=== PATIENT | male | born 1965 | race Caucasian/White ===

== ENCOUNTER 2020-05-14 13:55 | Inpatient (IN) | payer MEDICAID, SELFPAY ==
[~2020-05-14] VITALS: Ht 185.4 cm; Wt 90.7 kg
--- NOTE | 2020-05-14 13:55 | NUR ---
Patient BIBA BLS, transferred to bed 9. RN evaluating patient at bedside.
[2020-05-14 13:56] VITALS: BP 143/97
--- NOTE | 2020-05-14 13:57 | NUR ---
54 y/o male BIBA for SOB, non-productive dry cough, mild nausea X2 weeks. On arrival placed pt on 3L NC, O2 sat at 95%, HR at 132. Pt has increased work of breathing on arrival, retractions noted, lungs are clear at apices and diminished bilateral lower lobes. Equal rise and fall of the chest. Will continue to monitor. Denies PMH, RX NKA
--- NOTE | 2020-05-14 14:00 | NUR ---
18g IV placed to left ac, blood and blood cultures drawn at this time.
--- NOTE | 2020-05-14 14:02 | NUR ---
Dr. Hall is evaluating the patient at bedside.
[2020-05-14] MEDS ORDERED: NACL 0.9% 2,000 ML IV ONE (14:05)
[2020-05-14] MEDS ORDERED: cefTRIAXone 1,000 MG in DEXT 5% MINI-BAG PLUS 50 ML IV ONE (14:05)
[2020-05-14] MEDS ORDERED: cefTRIAXone 1,000 MG VIAL ONE (14:14)
[2020-05-14] MEDS ORDERED: KETOROLAC 30 MG/ML VIAL IVP ONE (14:25)
[2020-05-14 14:34] LABS: BASOPHILS # (AUTO) 0.2 K/uL (0.00-0.22); BASOPHILS % (AUTO) 2.2 % (0.0-2.0); EOSINOPHILS # (AUTO) 0.1 K/uL (0-0.4); EOSINOPHILS % (AUTO) 0.8 % (0.0-4.0); HEMATOCRIT 46.3 % (36-52); HEMOGLOBIN 15.1 g/dL (12.0-18.0); LYMPHOCYTES # (AUTO) 2.2 K/uL (2.0-11.5); LYMPHOCYTES % (AUTO) 27.7 % (20.5-51.1); MEAN CORPUSCULAR HEMOGLOBIN 28 pg (27-31); MEAN CORPUSCULAR HGB CONC 33 g/dL (33-37); MEAN CORPUSCULAR VOLUME 87.3 fL (80-94); MONOCYTES # (AUTO) 0.9 K/uL (0.8-1.0); MONOCYTES % (AUTO) 11.5 % (1.7-9.3); NEUTROPHILS # (AUTO) 4.5 K/uL (1.8-7.7); NEUTROPHILS % (AUTO) 57.8 % (42.2-75.2); PLATELET COUNT (AUTO) 197 K/uL (140-450); RED BLOOD CELL COUNT(AUTO) 5.31 MIL/uL (4.20-6.10); RED CELL DISTRIBUTION WIDTH 16.1 % (11.6-13.7); WHITE BLOOD COUNT (AUTO) 7.8 K/uL (4.8-10.8)
[2020-05-14 14:47] LABS: ANION GAP 11.9 (8-16); CARBON DIOXIDE 28.5 mmol/L (21-32); POTASSIUM 4.4 mmol/L (3.5-5.1); TOTAL BILIRUBIN 1.2 mg/dL (0.0-1.0)
--- NOTE | 2020-05-14 15:07 | NUR ---
XR at the pt bedside.
--- NOTE | 2020-05-14 15:22 | NUR ---
Consent in pt chart for CT contrast procedure per ERMD order.
--- NOTE | 2020-05-14 15:55 | NUR ---
Pt transported to CT via rney.
[2020-05-14 15:57] LABS: APPEARANCE,URINE CLEAR (CLEAR); BILIRUBIN,URINE 1+ (NEGATIVE); BLOOD, URINE NEGATIVE (NEGATIVE); LEUKOCYTE ESTERASE ,URINE NEGATIVE (NEGATIVE); NITRITE, URINE NEGATIVE (NEGATIVE); PH,URINE 5.5 (5.0-9.0); UGLUCOSE NEGATIVE (NEGATIVE)
--- NOTE | 2020-05-14 16:12 | NUR ---
Patient returned from CT scan.
[2020-05-14 16:16] LABS: COLOR,URINE AMBER (YELLOW)
[2020-05-14] MEDS ORDERED: ENOXAPARIN 100 MG/ML SYR SUBQ ONE (16:55)
--- NOTE | 2020-05-14 17:08 | NUR ---
Pt has increased work of breathing noted with sinus tachycardia, and elevated respirations. Pt is on 3L NC with o2 sat at 97%. See charted VSS for trend. Will continue to monitor. Pending admission.
[2020-05-14 17:34] LABS: PROTHROMBIN TIME 12.5 secs (10.8-13.4)
--- NOTE | 2020-05-14 18:48 | NUR ---
Pt resting, eyes closed. Will continue to monitor. Pending admission.
--- NOTE | 2020-05-14 19:16 | NUR ---
Gave report to EMMANUEL Romero, transfered patient care at this time.
--- NOTE | 2020-05-14 19:36 | NUR ---
Called EMMANUEL Blum over the phone for transfer of care report.
--- NOTE | 2020-05-14 20:00 | NUR ---
ADMITTED 54 Y/O MALE, TRANSPORTED VIA GURNEY FROM [facility], AOX4, NO DISTRESS, ON 5L NC NO SOB, O2 SAT WNL, LAC 18 G, INTACT, MRSA SWAB TAKEN, V/S TAKEN, TELE MONITOR ATTACHED, SAFETY MEASURES IN PLACE, LOW BED IN PLACE, ORIENTED TO ROOM, CALL LIGHT WITHIN REACH.
--- NOTE | 2020-05-14 20:00 | NUR ---
Patient will be admitted to care of DR.MICHAEL LYLE. Admited to TELEMETRY. Will go to room 111B. Belongings list completed. Report to EMMANUEL HOLBROOK.
--- NOTE | 2020-05-14 22:00 | NUR ---
PT IS WATCHING TV. NO SOB ON O2 VIA NC AT 5 LPM.
[2020-05-14] MEDS ORDERED: HYDROcodone/APAP 7.5/325 MG 1 TAB PO PRN (22:20)
[2020-05-14] MEDS ORDERED: POTASSIUM CHLORIDE 10 MEQ TABER PO PRN (22:20)
[2020-05-14] MEDS ORDERED: ACETAMINOPHEN 325 MG TAB PO PRN (22:20)
[2020-05-14] MEDS ORDERED: DOCUSATE SODIUM 100 MG GELCAP PO PRN (22:20)
[2020-05-14 23:14] LABS: CHOL/HDL RATIO 1.6 (1-4.5); FREE T4 (FREE THYROXINE) 1.09 ng/dL (0.76-1.46); MAGNESIUM 1.6 mg/dL (1.8-2.4); PHOSPHORUS 4.3 mg/dL (2.5-4.9); THYROID STIMULATING HORMONE 2.57 uIU/mL (0.34-3.74)
[2020-05-14] MEDS ORDERED: PNEUMOCOCCAL VACCINE 23 MCG/0.5 ML VIAL IMVAC SCH (23:40)
[2020-05-14 23:47] LABS: BARBITURATE, URINE NEGATIVE ng/ml (NEG <=200)
[2020-05-14 23:48] LABS: BENZODIAZEPINE, URINE NEGATIVE ng/mL (NEG <=200); CANNABINOID, URINE NEGATIVE ng/mL (NEG <=50); COCAINE, URINE NEGATIVE ng/mL (NEG <=300); OPIATE, URINE NEGATIVE ng/mL (NEG <=2000); PHENCYCLIDINE SCREEN,URINE NEGATIVE ng/mL (NEG <=25)
--- NOTE | 2020-05-15 | NUR ---
V/S TAKEN AND RECORDED. AROUSABLE TO VERBAL.
--- NOTE | 2020-05-15 02:00 | NUR ---
PT IS ASLEEP.NOTED CHEST RISE.
--- NOTE | 2020-05-15 04:00 | NUR ---
V/S TAKEN, PT IS SLEEPING, KEPT WARM.
--- NOTE | 2020-05-15 07:10 | NUR ---
PT IS STABLE, BEDSIDE ENDORSEMENT GIVEN TO AM SHIFT RN FOR CONTINUITY OF CARE.
--- NOTE | 2020-05-15 08:47 | NUR ---
PATIENT HAS BEEN SCREENED AND CATEGORIZED MODERATE NUTRITION RISK. PATIENT WILL BE SEEN WITHIN 3-5 DAYS OF ADMISSION. 05/17/20 05/19/[address]
[2020-05-15] MEDS ORDERED: LOVENOX 1MG/KG Q12H SUBQ SCH (09:00)
[2020-05-15] MEDS: ENOXAPARIN 100 MG/ML SYR SUBQ SCH ×2 (09:21→20:14)
--- NOTE | 2020-05-15 10:25 | NUR ---
DC PLANN[age] YRS OLD ADMITTED FROM HOME WITH A DX PULMONARY EMBOLISM. PT HAS NO MEDICAL HISTORY. CXR SHOWED PULMONARY INTERSTITIAL AND LIKELY ALVEOLAR EDEMA . PT WAS WITH ELEVATED D-DIMER AND CT CHEST SHOWED PE. TREATED WITH LOVENOX 90 MG SUBQ , IVF, IV ABX WITH ROCEPHIN . RAPID COVID TEST NEGATIVE INFLUENZA A&B NEGATIVE. URINE AND BLOOD CULTURE PENDING. CONSULTED WITH CUSHION MAT MAKER . DC PLAN PER RESPONSE TO THE TREATMENT. CM TO FOLLOW. Addendum: 05/17/20 at 1039 by aKterina Valenzuela RN DC PLANNING: CALLED [facility] [phone] LEFT A MESSAGE FOR JOSE RAMON GUERRERO . PT IS CURRENTLY ON O2 8L OXYMIZER CM TO FOLLOW Addendum: 05/17/20 at 1201 by Katerina Valenzuela RN DC PLANNING: RECEIVED A CALL FROM [employer] CM SPOKE WITH BILL [phone] UPDATED PT'S CLINICAL AND DISCUSS THE DC PLAN, AT THIS TIME PT'S HEART RATE ARE IN THE 130'S AND CAN NOT GO TO SNF. PT MD ORDERED ONCE STABLE CAN GO TO SNF FOR O2 MANAGEMENT AND PT. PER BILL [facility] STAY AT [facility] UNTIL STABLE , AT THIS TIME THERE IS NO BED AVAILABLE TO ANY OF CONTRACTED FACILITY AND WILL AUTHORIZED THE STAY. SHE PROVIDE ME THE CONTRACTED FACILITY FOR SNF. FAXED TO THE [facility] [phone]. CM TO FOLLOW Addendum: 05/17/20 at 1510 by Katerina Valenzuela RN DC PLANNING: RECEIVED A CALL FROM [facility] [phone] SPOKE WITH [facility] , CAN ACCEPT PATIENT WITH 8L OXYMIZER BUT THEY ARE NOT CONTRACTED WITH [facility] AND [facility] HAS TO GIVE CHANTE. CALLED BILL AT [facility] MALCOM STATED SHE CAN NOT GIVE CHANTE WILL TRY THE CONTRACTED FACILITY FIRST. AND BILL STATED PT CAN STAY AT THE HOSPITAL UNTIL HE GETS BETTER AND STABLE TO TRANSFER TO SNF. AUTH # [id number]. CM TO FOLLOW Addendum: 05/19/20 at 1438 by Abdirahman Escalante SS BEA CONSULTED WITH DR. CARBALLO REGARDING DISCHARGE PLAN. PER DR. CARBALLO, PATIENT IS ABLE TO BE DISCHARGED HOME IF PRESCRIBED MEDICATION IS COVERED BY INSURANCE. BEA CONTACTED EMMANUEL CASTELLANO WHO SPOKE WITH PATIENT REGARDING PREFERRED PHARMACY. PER PATIENT, [facility] [address] [place] [phone] . [facility] WHO STATED THAT THEY WOULD NOT BE ABLE TO SEE IF MEDICATION WOULD BE COVERED UNLESS ELECTRONIC PRESCRIPTION WAS FILLED OUT. BEA INFORMED EMMANUEL CASTELLANO WHO STATED SHE WOULD INFORM DR. CARBALLO. Addendum: 05/19/20 at 1504 by Abdirahman AGUILAR BEA SPOKE WITH DR. CARBALLO REGARDING PRESCRIPTION. DR CARBALLO STATED THAT HE WOULD SEND ELECTRONIC PRESCRIPTION TO SEE IF INSURANCE COVERS IT. BEA CON[facility]ED [facility] AND SPOKE TO ROBIN. PER ROBIN, ALL MEDICATIONS WERE COVERED BY PATIENT'S INSURANCE. ROBIN STATED THAT HE LEFT PRESCRIPTION FOR [facility] OPEN TO BE PICKED UP. PER DR. CARBALLO, PATIENT WILL BE STAYING EXTRA NIGHT.
[2020-05-15 13:00] VITALS: BP 135/94
--- NOTE | 2020-05-15 15:08 | NUR ---
SOCIAL WORK NOTE: Patient's Orientation Person Situation Place Time Information Provided By PATIENT Comments SW MET WITH PATIENT AT BEDSIDE. PATIENT WAS GUARDED AND SARCASTIC WITH RESPONSES. SW ATTEMPTED TO COMPLETE ASSESSMENT WITH PATIENT. PATIENT WAS UNCOOPERATIVE WITH ASSESSMENT. Cylindrical Mixer, Realtionship and Phone Number ALTA KRUEGER [phone] [facility] Power of Director Of It Operations No Does Patient Have a POLST No Identifying Problems Homelessness/Housing Is A Social Work Consult Needed No Mandate Report Filed No Explanation Of Identifying Problems PATIENT IS A 54-YEAR-OLD MALE ADMITTED FOR PULMONARY EMBOLISM. PATIENT HAS PMHX OF POLYSUBSTANCE ABUSE. DURING ASSESSMENT, PATIENT DENIED SUBSTANCE ABUSE AND REFUSED SUBSTANCE ABUSE RESOURCES. SW LEFT HOMELESS RESOURCES AT BEDSIDE. PATIENT DENIED MENTAL HEALTH HISTORY. PATIENT'S RESPONSES THEREAFTER WERE LIMITED. Admitted From HOMELESS Pre-Admission Level Of Functioning Status Independent/Ambulatory Prior Resources/Services Used In Last 12 Months Homeless Resources Living Situation Homeless Factors/Needs Retirement/Homeless Discharge Plan Comments TENTATIVE DISCHARGE PLAN IS FOR PATIENT TO COORDINATE LIVING ARRANGEMENTS HIMSELF. PATIENT REFUSED RESOURCES. DC Plan Status Initiated
[2020-05-15] MEDS: LORazepam 2 MG/ML VIAL IM/IVP PRN ×2 (15:48→20:37)
--- NOTE | 2020-05-15 19:38 | NUR ---
RECEIVED REPORT AND CONTINUITY OF CARE FROM AM NURSE.
[2020-05-15] MEDS ORDERED: DILTIAZEM 25 MG/5 ML VIAL IVP SCH (21:15)
--- NOTE | 2020-05-15 21:15 | NUR ---
WALL COVERING CONTRACTOR REPORTED THAT PT SHOWED ATRIAL FLUTTER WITH P134 ON TELE STRIP. BP IS 130/90, RR 26. MD CARBALLO NOTIFIED. ORDER RECEIVED TO ADMINISTERED 20MG CARDIZEM ONCE.
[2020-05-15] MEDS ORDERED: DILTIAZEM 25 MG/5 ML VIAL IVP ONE (21:20)
--- NOTE | 2020-05-15 21:30 | NUR ---
UPON PHYSICAL ASSESSMENT, PT IS A/OX4, HEAD IS ROUND, NORMOCEPHALIC, FACE IS UNIFORMED, SYMMETRICAL, ALIGNED EYEBROWS AND SMILE, PMMM, SCLERA WHITE, PERRL. TRACHEA IS PLACE IN THE MIDLINE OF THE NECK, MILD JVD NOTED CHEST IS SYMMETRICAL, DIMINISHED LUNG TONES, BREATHING SPONTANEOUSLY ON 3L 02 VIA NC. S1, S2 HEART TONES NOTED. PITTING EDEMA +2 IN BUE, +3 IN BLE. BOWEL TONES ARE ACTIVE IN FOUR QUADRANTS. ABD IS FLAT AND NONTENDER. SKIN IS SMOOTH, WARM, DRY, AND INTACT. NAILS INTACT, CAP REFILL IS LESS THAN 3 SECONDS, NO CLUBBING OR CYANOSIS NOTED. EQUAL AND BILATERAL PEDAL PULSES NOTED. ORIENTED PT TO STAFF AND CALL LIGHT. SAFETY PRECAUTIONS IN PLACE.
--- NOTE | 2020-05-15 21:38 | NUR ---
ADMINISTERED CARDIZEM PER MD ORDER. WILL REASSESS IN 15 MINS.
--- NOTE | 2020-05-15 23:18 | NUR ---
DR ASENCIO INFORMED OF PT'S PULSE AT 134. ORDER RECEIVED TO ADMINISTER METOPROLOL 5MG IVP Q3H FOR HR >120 AND METOPROLOL 50MG PO BID. ONE DOSE OF EACH ORDER IS TO BE ADMINISTERED NOW.
--- NOTE | 2020-05-15 23:55 | NUR ---
ADMINISTERED LOPRESSOR PER MD ORDER. EDUCATION RENDERED. PT VERBALIZED UNDERSTANDING. NO SIGNS OF DISTRESS AT THIS TIME. Addendum: 05/16/20 at 0356 by Rouqe Rios RN NURSE WAS NOT ABLE TO SCAN LOPRESSOR 50MG PO IN [employer] BUT THE MEDICATION WAS GIVEN.
[2020-05-15] MEDS ORDERED: METOPROLOL 50 MG TAB ONE (23:57)
--- NOTE | 2020-05-16 00:10 | NUR ---
PT FOUND TO BE LYING DOWN FLAT ON THE EDGE OF HIS BED COMPLAINING OF NOT BEING ABLE TO BREATHE. HELP PT TO SIT UP AND EDUCATED THE PT TO TAKE DEEP BREATHES. MOVED THE PT BACK INTO BED AND EDUCATION THE PT TO ELEVATE HOB AT LEAST 45 DEGREES TO HELP HIM BREATHE BETTER. 3L 02 VIA NC ATTACHED. TELE MONITOR ATTACHED. WILL CONTINUE TO MONITOR.
--- NOTE | 2020-05-16 01:54 | NUR ---
patient checked and placed on 3lnc due to desaturation. no respiratory distress noted. rn aware. will cont to monitor
--- NOTE | 2020-05-16 02:50 | NUR ---
PT IS SLEEPING. NO SIGNS OF DISTRESS AT THIS TIME.
--- NOTE | 2020-05-16 04:12 | NUR ---
ADMINISTERED LOPRESSOR 5MMG/5ML FOR HEART RATE 126, BP 129/80. WILL REASSESSED IN 1 HOUR. Addendum: 05/16/20 at 0442 by Roque Rios RN CORRECTION ADMINISTERED LOPRESSOR 5MG/5ML.
[2020-05-16] MEDS: METOPROLOL 5 MG/5 ML VIAL IV PRN ×2 (04:20)
[2020-05-16] MEDS ORDERED: FUROSEMIDE 40 MG/4 ML VIAL IVP SCH (06:35)
--- NOTE | 2020-05-16 07:30 | NUR ---
RECEIVED REPORT FROM PM RN. POC WILL CONTINUE. PT DEMONSTRATES SOB. NO CYANOSIS NOTED. KEPT HOB ELEVATED. PLACED PT TO FALL PRECAUTION.
[2020-05-16 07:36] LABS: HEMATOCRIT 48.2 % (36-52); HEMOGLOBIN 15.8 g/dL (12.0-18.0); MEAN CORPUSCULAR HEMOGLOBIN 29 pg (27-31); MEAN CORPUSCULAR HGB CONC 33 g/dL (33-37); PLATELET COUNT (AUTO) 200 K/uL (140-450); RED BLOOD CELL COUNT(AUTO) 5.46 MIL/uL (4.20-6.10); RED CELL DISTRIBUTION WIDTH 16.1 % (11.6-13.7); WHITE BLOOD COUNT (AUTO) 7.5 K/uL (4.8-10.8)
[2020-05-16 07:37] LABS: BASOPHILS # (AUTO) 0.1 K/uL (0.00-0.22); BASOPHILS % (AUTO) 0.7 % (0.0-2.0); EOSINOPHILS % (AUTO) 0.2 % (0.0-4.0); LYMPHOCYTES # (AUTO) 1.4 K/uL (2.0-11.5); LYMPHOCYTES % (AUTO) 19.2 % (20.5-51.1); MONOCYTES # (AUTO) 0.4 K/uL (0.8-1.0); NEUTROPHILS # (AUTO) 5.5 K/uL (1.8-7.7); NEUTROPHILS % (AUTO) 73.9 % (42.2-75.2)
--- NOTE | 2020-05-16 07:50 | NUR ---
ADMINISTERED LASIX 40GM IV PUSH. EDUCATION RENDERED. ENDORSE REPORT AND CONTINUITY OF CARE TO AM NURSE.
[2020-05-16 08:08] LABS: T4 (THYROXINE) 5.8 ug/dL (4.5-12.0)
[2020-05-16 08:28] LABS: ANION GAP 14.6 (8-16); CARBON DIOXIDE 25.4 mmol/L (21-32)
[2020-05-16 08:30] VITALS: BP 126/114
[2020-05-16 08:33] LABS: MAGNESIUM 1.8 mg/dL (1.8-2.4)
[2020-05-16] MEDS: AZITHROMYCIN 250 MG TAB PO SCH (08:52)
[2020-05-16] MEDS: METOPROLOL 50 MG TAB PO SCH ×2 (08:52→21:06)
[2020-05-16] MEDS: ENOXAPARIN 100 MG/ML SYR SUBQ SCH ×2 (08:54→21:07)
--- NOTE | 2020-05-16 12:00 | NUR ---
PT IS RESTING AND CALM. NO S/S OF SOB. NO CYANOSIS NOTED. REINFORCED ON FALL PRECAUTION. WILL CONTINUE TO MONITOR.
[2020-05-16 12:15] VITALS: BP 130/94
--- NOTE | 2020-05-16 12:15 | NUR ---
PT VERBALIZED DIFFICULTY BREATHING. V/S TAKEN. O2 SAT AT 98%. NO SIGNS OF CYANOSIS NOTED. PT IS AGITATED. WILL MEDICATE NEEDED.
[2020-05-16] MEDS: LORazepam 2 MG/ML VIAL IM/IVP PRN ×2 (12:17→21:16)
--- NOTE | 2020-05-16 12:50 | NUR ---
O2 SAT 83 - 86%. RT JOANNA NOTIFIED ON THE FLOOR. SEEN AND ATTENDED. PT ON 3L O2. RT PLACED PT TO OXYMIZER 8 L . WILL CONTINUE TO MONITOR.
--- NOTE | 2020-05-16 13:06 | NUR ---
94% O2 SAT. PT ON 8L VIA OXYMIZER. PT IS RESTING AND CALM AT THIS TIME.
--- NOTE | 2020-05-16 19:15 | NUR ---
ENDORSED TO PM RN FOR THE CONTINUITY OF CARE. NO CHANGE NOTED.
--- NOTE | 2020-05-16 19:16 | NUR ---
RECEIVED BEDSIDE REPORT FROM DAY RN. PT IS RESTING COMFORTABLY IN BED. CHEST RISE AND FALL NOTED. PT ON OXIMIZER 8L O2. RESPIRATIONS ARE EQUAL AND LABORED WITH RR 22. IV ON LAC 22G SL DX PE. PT ON STANDARD ISOLATION. PT IS ON FALL PRECAUTION. PT IS A-FLUTER WITH HR 130s MD AWARE. CALL LIGHT IS WITHIN REACH. WILL CONTINUE TO MONITOR.
[2020-05-16 20:00] VITALS: BP 120/93
--- NOTE | 2020-05-16 21:06 | NUR ---
VSS. PT IS AAOX4. STATES, "MY OXYGEN IS NOT WORKING." PT IS SAT 93% ON 8L O2 VIA OXIMIZER. EXPLAIN POC TO PT. PT VERBALIZED UNDERSTANDING. EV MEDICATION GIVEN PER ORDERS. MED EDUCATION GIVEN. PT VERBALIZED UNDERSTANDING. PT WITH BLE EDEMA NON PITTING. LUNG SOUNDS WITH GRISELDA WHEEZING AND RHONCHI. ALL NEEDS MET. CALL LIGHT IS WITHIN REACH.
[2020-05-17] VITALS: BP 126/98
--- NOTE | 2020-05-17 | NUR ---
VITAL SIGNS ARE STABLE. PT REMAINS ON 8L O2 VIA OXIMIZER. PT SLEEPING COMFORTABLY IN BED BUT EASILY AROUSABLE TO NAME. CALL LIGHT IS WITHIN REACH. WILL CONTINUE TO MONITOR.
--- NOTE | 2020-05-17 02:00 | NUR ---
PT SLEEPING COMFORTABLY IN BED WITH EYES CLOSED. CHEST RISE AND FALL NOTED. REMAINS ON OXIMIZER 8L SAT WELL. CALL LIGHT IS WITHIN REACH. WILL CONTINUE TO MONITOR.
[2020-05-17 04:00] VITALS: BP 106/84
--- NOTE | 2020-05-17 04:00 | NUR ---
VITAL SIGNS ARE STABLE. PT RESTING COMFORTABLY IN BED. DENIES ANY PAIN OR DISCOMFORT. ALL NEEDS MET. CALL LIGHT IS WITHIN REACH.
--- NOTE | 2020-05-17 07:23 | NUR ---
GAVE BEDSIDE REPORT TO DAY RN. PT ENDORSED IN STABLE CONDITION.
--- NOTE | 2020-05-17 07:28 | NUR ---
RECEIVED BEDSIDE REPORT FROM NIGHTSHIFT NURSE. PT RESTING IN BED. ABLE TO MAKE NEEDS KNOWN. RESPIRATIONS EVEN AND UNLABORED WITH NO SOB OR RESPIRATORY DISTRESS. SKIN WARM AND DRY TO TOUCH. IV SITE IN LAC 18G IS CLEAN, DRY, AND INTACT. WILL CONTINUE TO MONITOR
[2020-05-17 08:00] VITALS: BP 131/94
[2020-05-17] MEDS: METOPROLOL 50 MG TAB PO SCH ×2 (09:39→21:07)
[2020-05-17] MEDS: AZITHROMYCIN 250 MG TAB PO SCH (09:39)
[2020-05-17] MEDS: ENOXAPARIN 100 MG/ML SYR SUBQ SCH ×2 (09:39→21:16)
--- NOTE | 2020-05-17 09:52 | NUR ---
ADMINISTERED SCHED MED PRESCRIBED PER MD ORDER. PT TOLERATED WELL. MEDICATION EDUCATION PERFORMED. PT VERBALIZED UNDERSTANDING. SAFETY MEASURES IN PLACE. WILL CONTINUE TO MONITOR
[2020-05-17 12:00] VITALS: BP 139/91
--- NOTE | 2020-05-17 12:00 | NUR ---
PT RESTING IN BED. ABLE TO MAKE NEEDS KNOWN. RESPIRATIONS EVEN AND UNLABORED WITH NO SOB OR RESPIRATORY DISTRESS. SKIN WARM AND DRY TO TOUCH. WILL CONTINUE TO MONITOR
--- NOTE | 2020-05-17 15:06 | NUR ---
ADMINISTERED SCHED MED PRESCRIBED PER MD ORDER. PT TOLERATED WELL. MEDICATION EDUCATION PERFORMED. PT VERBALIZED UNDERSTANDING. SAFETY MEASURES IN PLACE. WILL CONTINUE TO MONITOR
[2020-05-17 16:00] VITALS: BP 116/82
--- NOTE | 2020-05-17 16:48 | NUR ---
P.T. NOTES P.T. EVAL COMPLETED; ENDORSED TO NURSING; O2 SAT ROOM AIR=97%
--- NOTE | 2020-05-17 18:45 | NUR ---
HOURLY ROUNDING. PT RESTING IN BED. ABLE TO MAKE NEEDS KNOWN. RESPIRATIONS EVEN AND UNLABORED WITH NO SOB OR RESPIRATORY DISTRESS. SKIN WARM AND DRY TO TOUCH. WILL CONTINUE TO MONITOR
--- NOTE | 2020-05-17 19:20 | NUR ---
ENDORSED AT BEDSIDE FOR CONTINUITY OF CARE. PT IS STABLE
--- NOTE | 2020-05-17 19:24 | NUR ---
RECEIVED BEDSIDE REPORT FROM DAY RN. PT IS RESTING COMFORTABLY IN BED EATING DINNER NO COMPLAINTS AT THIS TIME. RESPIRATIONS ARE EQUAL AND UNLABORED ON ROOM AIR. IV ON LAC 18G SL DX PE. SKIN IS INTACT. PT ON STANDARD ISOLATION. PT IS ON FALL PRECAUTION. PT IS A-FLUTER WITH HR 130s MD AWARE. POC DISCUSSED WITH PT. PT VERBALIZED UNDERSTANDING. CALL LIGHT IS WITHIN REACH. WILL CONTINUE TO MONITOR.
--- NOTE | 2020-05-17 21:07 | NUR ---
VITAL SIGNS ARE STABLE. EV MEDICATIONS GIVEN PER ORDERS. MED EDUCATION GIVEN. PT TOLERATED WELL. ALL NEEDS MET. CALL LIGHT IS WITHIN REACH.
[2020-05-17] MEDS: LORazepam 2 MG/ML VIAL IM/IVP PRN (21:16)
[2020-05-17 22:04] VITALS: BP 107/82
--- NOTE | 2020-05-17 22:30 | NUR ---
ROUNDS MADE. PT IS SLEEPING COMFORTABLY IN BED WITH EYES CLOSED. CHEST RISE AND FALL. CALL LIGHT IS WITHIN REACH.
[2020-05-18] VITALS: BP 113/80
--- NOTE | 2020-05-18 | NUR ---
VITAL SIGNS ARE STABLE. PT LAYING IN BED GOING THROUGH ALL BELONGINGS. PT REMAINS AAOX4. DENIES ANY DISCOMFORT. ALL NEEDS MET. WILL CONTINUE TO MONITOR.
--- NOTE | 2020-05-18 02:10 | NUR ---
ROUNDS MADE. PT IS SLEEPING COMFORTABLY IN BED WITH EYES CLOSED. CHEST RISE AND FALL NOTED. CALL LIGHT IS WITHIN REACH.
[2020-05-18 04:00] VITALS: BP 123/95
--- NOTE | 2020-05-18 04:00 | NUR ---
VITAL SIGNS ARE WITHIN NORMAL LIMITS. CALL LIGHT IS WITHIN REACH.
--- NOTE | 2020-05-18 07:20 | NUR ---
RECEIVED REPORT FROM PM RN. PT DEMONSTRATES NO S/S OF DISTRESS. NO SOB NOTED. DENIES CHEST PAIN. FALL PRECAUTION INITIATED. INSTRUCTED TO USE CALL LIGHT. PT DEMONSTRATED UNDERSTANDING. WILL CONTINUE TO MONITOR.
--- NOTE | 2020-05-18 07:30 | NUR ---
GAVE BEDSIDE REPORT TO DAY RN. PT ENDORSED IN STABLE CONDITION.
[2020-05-18 08:00] VITALS: BP 105/63
[2020-05-18 09:19] LABS: ANION GAP 11.3 (8-16); CARBON DIOXIDE 27.6 mmol/L (21-32); CREATININE 1.1 mg/dL (0.6-1.3); POTASSIUM 4.9 mmol/L (3.5-5.1)
[2020-05-18 09:22] LABS: MAGNESIUM 1.8 mg/dL (1.8-2.4); PHOSPHORUS 3.7 mg/dL (2.5-4.9)
[2020-05-18 09:25] LABS: BASOPHILS # (AUTO) 0.1 K/uL (0.00-0.22); EOSINOPHILS # (AUTO) 0.1 K/uL (0-0.4); HEMATOCRIT 46.8 % (36-52); HEMOGLOBIN 15.3 g/dL (12.0-18.0); LYMPHOCYTES # (AUTO) 2.5 K/uL (2.0-11.5); LYMPHOCYTES % (AUTO) 35.6 % (20.5-51.1); MEAN CORPUSCULAR HEMOGLOBIN 29 pg (27-31); MEAN CORPUSCULAR HGB CONC 33 g/dL (33-37); MEAN CORPUSCULAR VOLUME 87.2 fL (80-94); MONOCYTES # (AUTO) 0.6 K/uL (0.8-1.0); MONOCYTES % (AUTO) 8.8 % (1.7-9.3); NEUTROPHILS # (AUTO) 3.7 K/uL (1.8-7.7); NEUTROPHILS % (AUTO) 53.6 % (42.2-75.2); PLATELET COUNT (AUTO) 210 K/uL (140-450); RED BLOOD CELL COUNT(AUTO) 5.36 MIL/uL (4.20-6.10); RED CELL DISTRIBUTION WIDTH 15.8 % (11.6-13.7); WHITE BLOOD COUNT (AUTO) 6.9 K/uL (4.8-10.8)
[2020-05-18] MEDS: AZITHROMYCIN 250 MG TAB PO SCH (09:49)
[2020-05-18] MEDS: ENOXAPARIN 100 MG/ML SYR SUBQ SCH ×2 (09:49→20:37)
[2020-05-18] MEDS: METOPROLOL 50 MG TAB PO SCH ×2 (09:50→20:36)
[2020-05-18] MEDS ORDERED: lisinopriL 10 MG TAB PO SCH (10:15)
[2020-05-18] MEDS ORDERED: FUROSEMIDE 20 MG/2 ML VIAL IVP SCH (10:15)
[2020-05-18 12:00] VITALS: BP 106/87
--- NOTE | 2020-05-18 12:00 | NUR ---
PT IS CALM. NO SOB NOTED. KEPT PT ON RA. NO S/S OF AGITATION. WILL CONTINUE TO MONITOR.
--- NOTE | 2020-05-18 14:07 | NUR ---
05/18/2020 RD INITIAL ASSESSMENT COMPLETED PLEASE REFER TO NUTRITION ASSESSMENT UNDER CARE ACTIVITY FOR ESTIMATED NUTRITIONAL NEEDS. RD RECOMMENDATIONS: 1. CONTINUE REGULAR DIET TOLERATED. 2. HEALTHY EATING EDUCATION AND HANDOUT PROVIDED TO PT. 3. RD WILL F/U 7 DAYS; LOW RISK. AWILDA BAUER, RD
[2020-05-18 16:00] VITALS: BP 118/79
--- NOTE | 2020-05-18 19:30 | NUR ---
REPORT GIVEN TO PM RN. ENDORSED PT WITH NO S/S OF DISTRESS. NO CHANGE OF CONDITION.
[2020-05-18 20:00] VITALS: BP 114/88
[2020-05-18] MEDS: FUROSEMIDE 20 MG/2 ML VIAL IVP SCH (20:36)
[2020-05-19] VITALS: BP 116/86
[2020-05-19 04:00] VITALS: BP 118/83
[2020-05-19 07:22] LABS: ANION GAP 11.3 (8-16); CARBON DIOXIDE 28.7 mmol/L (21-32); CREATININE 1.1 mg/dL (0.6-1.3)
[2020-05-19 07:32] LABS: BASOPHILS # (AUTO) 0.1 K/uL (0.00-0.22); BASOPHILS % (AUTO) 0.8 % (0.0-2.0); EOSINOPHILS % (AUTO) 0.6 % (0.0-4.0); HEMATOCRIT 45.9 % (36-52); HEMOGLOBIN 15.2 g/dL (12.0-18.0); LYMPHOCYTES # (AUTO) 2.6 K/uL (2.0-11.5); LYMPHOCYTES % (AUTO) 40.7 % (20.5-51.1); MEAN CORPUSCULAR HEMOGLOBIN 29 pg (27-31); MEAN CORPUSCULAR HGB CONC 33 g/dL (33-37); MEAN CORPUSCULAR VOLUME 86.5 fL (80-94); MONOCYTES # (AUTO) 0.6 K/uL (0.8-1.0); MONOCYTES % (AUTO) 9.7 % (1.7-9.3); NEUTROPHILS # (AUTO) 3.1 K/uL (1.8-7.7); NEUTROPHILS % (AUTO) 48.2 % (42.2-75.2); PLATELET COUNT (AUTO) 205 K/uL (140-450); RED CELL DISTRIBUTION WIDTH 15.9 % (11.6-13.7); WHITE BLOOD COUNT (AUTO) 6.4 K/uL (4.8-10.8)
--- NOTE | 2020-05-19 07:42 | NUR ---
Handoff with EMMANUEL Gordon. Antonio Russell RN
--- NOTE | 2020-05-19 07:45 | NUR ---
RECEIVED PT FROM SKIVING MACHINE OPERATOR, PT IS AWAKE AND SEATED ON THE BED, SAFETY AND FALL PRECAUTION IN PLACE, IV LINE NOTED ON THE RT FA G. 24, ON SALINE LOCK, PT IS ON RA, NO SIGN OF DISTRESS NOTED AND WILL MONITOR PT.
[2020-05-19 08:00] VITALS: BP 125/94
[2020-05-19] MEDS: ENOXAPARIN 100 MG/ML SYR SUBQ SCH ×2 (08:32→21:16)
--- NOTE | 2020-05-19 08:32 | NUR ---
PT WAS GIVEN THE SCHEDULED AM MEDICATIONS, TOLERATED AND WILL MONITOR PT.
[2020-05-19] MEDS: AZITHROMYCIN 250 MG TAB PO SCH (08:42)
[2020-05-19] MEDS: METOPROLOL 50 MG TAB PO SCH ×2 (08:42→21:11)
[2020-05-19] MEDS: FUROSEMIDE 20 MG/2 ML VIAL IVP SCH (08:42)
[2020-05-19] MEDS: lisinopriL 10 MG TAB PO SCH (08:43)
[2020-05-19] MEDS: ONDANSETRON 4 MG/2 ML VIAL IM/IVP PRN ×3 (09:00→22:40)
--- NOTE | 2020-05-19 09:00 | NUR ---
PT WAS GIVEN ZOFRAN FOR FEELING OF NAUSEA, WILL MONITOR PT.
[2020-05-19 12:00] VITALS: BP 125/88
--- NOTE | 2020-05-19 12:01 | NUR ---
PT IS HAVING HIS LUNCH NOW, NO SIGN OF DISTRESS NOTED, WILL MONITOR PT.
[2020-05-19] MEDS ORDERED: DABI150C PO (14:44)
[2020-05-19] MEDS ORDERED: APIX5TAB PO (14:44)
--- NOTE | 2020-05-19 15:27 | NUR ---
PT WAS GIVEN IVPB ROCEPHIN NOW, WILL MONITOR PT.
[2020-05-19 16:00] VITALS: BP 117/87
--- NOTE | 2020-05-19 17:32 | NUR ---
PT WAS GIVEN ZOFRAN NOW FOR FEELING OF NAUSEA, WILL MONITOR PT.
--- NOTE | 2020-05-19 19:15 | NUR ---
ENDORSED PT TO MEDICAL RADIATION DOSIMETRIST NURSE FOR CONTINUITY OF CARE.
[2020-05-19 20:00] VITALS: BP 116/86
[2020-05-20] VITALS: BP 96/71
[2020-05-20 04:00] VITALS: BP 96/76
[2020-05-20 07:15] LABS: BASOPHILS # (AUTO) 0.1 K/uL (0.00-0.22); BASOPHILS % (AUTO) 0.9 % (0.0-2.0); EOSINOPHILS # (AUTO) 0.1 K/uL (0-0.4); EOSINOPHILS % (AUTO) 1.1 % (0.0-4.0); HEMATOCRIT 45.2 % (36-52); HEMOGLOBIN 14.9 g/dL (12.0-18.0); LYMPHOCYTES # (AUTO) 2.5 K/uL (2.0-11.5); LYMPHOCYTES % (AUTO) 40.6 % (20.5-51.1); MEAN CORPUSCULAR HEMOGLOBIN 29 pg (27-31); MEAN CORPUSCULAR HGB CONC 33 g/dL (33-37); MEAN CORPUSCULAR VOLUME 87.2 fL (80-94); MONOCYTES # (AUTO) 0.6 K/uL (0.8-1.0); MONOCYTES % (AUTO) 9.7 % (1.7-9.3); NEUTROPHILS # (AUTO) 2.9 K/uL (1.8-7.7); NEUTROPHILS % (AUTO) 47.7 % (42.2-75.2); PLATELET COUNT (AUTO) 206 K/uL (140-450); RED BLOOD CELL COUNT(AUTO) 5.18 MIL/uL (4.20-6.10); RED CELL DISTRIBUTION WIDTH 16.1 % (11.6-13.7); WHITE BLOOD COUNT (AUTO) 6.2 K/uL (4.8-10.8)
[2020-05-20 07:17] LABS: ANION GAP 11.1 (8-16); CARBON DIOXIDE 28.9 mmol/L (21-32); CREATININE 1.3 mg/dL (0.6-1.3)
--- NOTE | 2020-05-20 07:23 | NUR ---
HANDOFF WITH EMMANUEL CASTELLANO. ROXANN FRANKEL RN
--- NOTE | 2020-05-20 07:25 | NUR ---
RECEIVED PT FROM MANUFACTURING DIRECTOR NURSE, PT IS AWAKE AND LYING ON THE BED WITH SAFETY AND FALL PRECAUTION IN PLACE, IV LINE NOTED ON THE RFA G. 24 ON SALINE LOCK, PT IS ON RA, NO SIGN OF DISTRESS NOTED AND DENIES PAIN , WILL MONITOR PT.
[2020-05-20 08:00] VITALS: BP 102/77
[2020-05-20] MEDS: lisinopriL 10 MG TAB PO SCH ×2 (09:00→09:58)
[2020-05-20] MEDS: METOPROLOL 50 MG TAB PO SCH (09:00)
[2020-05-20] MEDS: AZITHROMYCIN 250 MG TAB PO SCH (09:58)
--- NOTE | 2020-05-20 09:58 | NUR ---
PT WAS GIVEN THE SCHEDULED AM MEDICATIONS, BP MEDS WERE NOT GIVEN D/T BP IS LOW, MD INFORMED.
[2020-05-20] MEDS: ENOXAPARIN 100 MG/ML SYR SUBQ SCH (09:59)
--- NOTE | 2020-05-20 10:10 | NUR ---
DR. CARBALLO CAME TO THE PT'S ROOM AND SPOKE TO PT REGARDING POC, AND PT VERBALIZED UNDERSTANDING.
[2020-05-20 12:00] VITALS: BP 104/82
[2020-05-20] MEDS: ONDANSETRON 4 MG/2 ML VIAL IM/IVP PRN (12:08)
--- NOTE | 2020-05-20 12:08 | NUR ---
PT WAS GIVEN ZOFRAN FOR NAUSEA, WILL MONITOR PT.
[2020-05-20] MEDS ORDERED: AZIT250T3 PO (12:20)
[2020-05-20] MEDS ORDERED: METO25TA PO (12:21)
--- NOTE | 2020-05-20 13:15 | NUR ---
ENDORSED PT TO RN COURTNEY FOR CONTINUITY OF CARE.
--- NOTE | 2020-05-20 13:16 | NUR ---
RECEIVED REPORT FROM NURSE FOR CONTINUITY OF CARE, PT HAS RIGHT FA 24G SALINE LOCK, SKIN INTACT, PT IS STABLE, WILL CONTINUE TO MONITOR.
[2020-05-20] MEDS ORDERED: FLU VACCINE QS2020-21 0.5 ML SYR IMVAC PRN (13:45)
--- NOTE | 2020-05-20 14:08 | NUR ---
ADMINISTERED FLU AND PNA VACCINE PRIOR TO DISCHARGE, MEDICATION EDUCATION PROVIDED, PT TOLERATED WELL, PT IS STABLE
[2020-05-20 14:09] VITALS: BP 102/77
--- NOTE | 2020-05-20 14:25 | NUR ---
DISCHARGED PT, DISCHARGED INSTRUCTIONS PROVIDED, PT VERBALIZED UNDERSTANDING, PT IV REMOVED AND INTACT, FLU AND PNA VACCINES GIVEN, PT DISCHARGED WITH HOMELESS SKILLED NURSING RESOURCES INFORMATION. PT DISCHARGED.
[2020-05-22] MEDS ORDERED: METOPROLOL 50 MG TAB PO ONE (23:35)
== END 2020-05-20 14:25 | disposition home or self-care (01) | DRG 134 ==
LOC: MED 13:55 → MTU 17:12
PROVIDERS: ADMIT Emergency Medicine; ATTEND Emergency Medicine
PROC: 3E0234Z Introduction of Serum, Toxoid and Vaccine into Muscle, Percutaneous Approach (ICD-10-PCS; principal; 2020-05-20)
DX: I26.99 Other pulmonary embolism without acute cor pulmonale (principal); J96.01 Acute respiratory failure with hypoxia; J18.9 Pneumonia, unspecified organism; I50.43 Acute on chronic combined systolic (congestive) and diastolic (congestive) heart failure; I42.9 Cardiomyopathy, unspecified; E86.0 Dehydration; J44.0 Chronic obstructive pulmonary disease with (acute) lower respiratory infection; F17.200 Nicotine dependence, unspecified, uncomplicated; F15.10 Other stimulant abuse, uncomplicated; Z20.828 Contact with and (suspected) exposure to other viral communicable diseases; Z91.19 Patient's noncompliance with other medical treatment and regimen; Z23 Encounter for immunization; F19.10 Other psychoactive substance abuse, uncomplicated; Z71.6 Tobacco abuse counseling; I07.1 Rheumatic tricuspid insufficiency
CPT/HCPCS: 36415; 71045; 71275; 80048; 80053; 80305; 81003; 83036; 83605; 83690; 83735; 83880; 84100; 84436; 84439; 84443; 84479; 84484; 85025; 85379; 85610; 85730; 87040; 87081; 87086; 87804; 90732; 93005; 93970; 96365; 96372; 96375; 97161-GP; 99285; J0696; J1650; J1885; J1940; J2060; J2405; J3490; J7030; J7060; Q9967; U0003

== ENCOUNTER 2020-05-24 14:40 | Inpatient (IN) | payer MEDICAID, SELFPAY ==
[~2020-05-24] VITALS: Ht 185.4 cm; Wt 90.7 kg
[~2020-05-24 14:40] MED LIST: AZIT250T3 PO; DABI150C PO; METO25TA PO
[2020-05-24 15:02] VITALS: BP 110/72
--- NOTE | 2020-05-24 15:46 | NUR ---
Ambulated to bed 10
--- NOTE | 2020-05-24 15:50 | NUR ---
Katarzyna MACIEL at pt bedside for EKG.
--- NOTE | 2020-05-24 15:56 | NUR ---
55 Y/O MALE REPORTS BEING ADMITTED HERE LAST WEEK FOR CHF, PULM EMBOLISM, PNA (COVID NEG X2) AND WAS TOLD TO F/U THIS WEEK. PT STATES INCREASING FATIGUE, BLE EDEMA, SOB SINCE D/C. LUNGS ARE DIMINISHED AT BILATERAL BASES, LABORED BREATHING NOTED ON ROOM AIR O2 SAT IS 97%. PT STATES HE NEEDS RX REFILLED. PMH: CHF, HTN NKA
[2020-05-24 16:20] LABS: BASOPHILS # (AUTO) 0.1 K/uL (0.00-0.22); BASOPHILS % (AUTO) 1.2 % (0.0-2.0); EOSINOPHILS # (AUTO) 0.1 K/uL (0-0.4); EOSINOPHILS % (AUTO) 1.7 % (0.0-4.0); HEMATOCRIT 46.5 % (36-52); HEMOGLOBIN 15.2 g/dL (12.0-18.0); LYMPHOCYTES # (AUTO) 1.8 K/uL (2.0-11.5); LYMPHOCYTES % (AUTO) 30.9 % (20.5-51.1); MEAN CORPUSCULAR HEMOGLOBIN 29 pg (27-31); MEAN CORPUSCULAR HGB CONC 33 g/dL (33-37); MEAN CORPUSCULAR VOLUME 88.1 fL (80-94); MONOCYTES # (AUTO) 0.7 K/uL (0.8-1.0); MONOCYTES % (AUTO) 11.4 % (1.7-9.3); NEUTROPHILS # (AUTO) 3.2 K/uL (1.8-7.7); NEUTROPHILS % (AUTO) 54.8 % (42.2-75.2); PLATELET COUNT (AUTO) 250 K/uL (140-450); RED BLOOD CELL COUNT(AUTO) 5.28 MIL/uL (4.20-6.10); RED CELL DISTRIBUTION WIDTH 16.2 % (11.6-13.7); WHITE BLOOD COUNT (AUTO) 5.8 K/uL (4.8-10.8)
--- NOTE | 2020-05-24 16:33 | NUR ---
X-Ray at bedside.
[2020-05-24 17:06] LABS: ALBUMIN 3.1 g/dL (3.4-5.0); ANION GAP 10.1 (8-16); CARBON DIOXIDE 31.3 mmol/L (21-32); CREATININE 1.3 mg/dL (0.6-1.3); POTASSIUM 4.4 mmol/L (3.5-5.1); TOTAL BILIRUBIN 0.7 mg/dL (0.0-1.0)
--- NOTE | 2020-05-24 17:33 | NUR ---
Dr Hall at bedside examining patient
[2020-05-24] MEDS ORDERED: MORPHINE SULFATE 4 MG/ML SYR IVP ONE (17:40)
[2020-05-24] MEDS ORDERED: FUROSEMIDE 40 MG/4 ML VIAL IVP ONE (17:40)
--- NOTE | 2020-05-24 17:44 | NUR ---
18G IV placed to left AC with good blood return
--- NOTE | 2020-05-24 18:41 | NUR ---
Pt resting, eyes closed, VSS, will continue to monitor.
[2020-05-24] MEDS ORDERED: MORPHINE SULFATE 2 MG/ML SYR IVP PRN (18:50)
[2020-05-24] MEDS ORDERED: LORazepam 2 MG/ML VIAL IM/IVP PRN (18:50)
[2020-05-24] MEDS ORDERED: POTASSIUM CHLORIDE 10 MEQ TABER PO PRN (18:50)
[2020-05-24] MEDS ORDERED: ZOLPIDEM 5 MG TAB PO PRN (18:50)
[2020-05-24] MEDS ORDERED: ACETAMINOPHEN 325 MG TAB PO PRN (18:50)
[2020-05-24] MEDS ORDERED: MAG SULF 2000 MG/WATER PREMIX 50 ML IV PRN (18:50)
[2020-05-24] MEDS ORDERED: DOCUSATE SODIUM 100 MG GELCAP PO PRN (18:50)
--- NOTE | 2020-05-24 18:56 | NUR ---
Per lab 1st shikha swap was invalid. Repeat MATTIE trivedi collected and walked to lab.
--- NOTE | 2020-05-24 19:11 | NUR ---
Report given to Sisi BENITEZ, transfered care at this time.
--- NOTE | 2020-05-24 19:17 | NUR ---
UA COLLECTED FROM PT AND TAKEN TO LAB
--- NOTE | 2020-05-24 19:17 | NUR ---
REPORTED RECIVED FROM PEYTON BENITEZ
[2020-05-24 19:29] LABS: PROTHROMBIN TIME 11.8 secs (10.8-13.4)
[2020-05-24 19:37] LABS: CHOL/HDL RATIO 1.8 (1-4.5); MAGNESIUM 1.7 mg/dL (1.8-2.4); PHOSPHORUS 3.7 mg/dL (2.5-4.9); THYROID STIMULATING HORMONE 10.45 uIU/mL (0.34-3.74)
[2020-05-24 19:52] LABS: APPEARANCE,URINE CLEAR (CLEAR); BILIRUBIN,URINE NEGATIVE (NEGATIVE); BLOOD, URINE NEGATIVE (NEGATIVE); COLOR,URINE YELLOW (YELLOW); LEUKOCYTE ESTERASE ,URINE NEGATIVE (NEGATIVE); NITRITE, URINE NEGATIVE (NEGATIVE); UGLUCOSE NEGATIVE (NEGATIVE)
[2020-05-24 20:14] LABS: BARBITURATE, URINE NEGATIVE ng/ml (NEG <=200); BENZODIAZEPINE, URINE NEGATIVE ng/mL (NEG <=200); CANNABINOID, URINE NEGATIVE ng/mL (NEG <=50); COCAINE, URINE NEGATIVE ng/mL (NEG <=300); OPIATE, URINE POSITIVE ng/mL (NEG <=2000); PHENCYCLIDINE SCREEN,URINE NEGATIVE ng/mL (NEG <=25)
--- NOTE | 2020-05-24 20:49 | NUR ---
PT PROVIDED WITH SANDWICH AND MILK. RESTING AT THIS TIME, NO DISTRESS NOTED. REMAOVES ON BEDSIDE MONITOR. RESPIRATIONS REGULAR EVEN AND UNLABORED
--- NOTE | 2020-05-24 21:18 | NUR ---
PT STATES STILL HAS MIDSTERNAL CP 11/11, WILL MEDICATED OREDERED WITH ADMIT ORDERS
[2020-05-24] MEDS: HYDROcodone/APAP 5/325 MG 1 TAB TAB PO PRN (21:27)
--- NOTE | 2020-05-24 22:28 | NUR ---
CALLED REPORT TO JACK BENITEZ ON TELE UNIT. WILL TRANSPORT PT TO [facility]
--- NOTE | 2020-05-24 23:20 | NUR ---
Patient will be admitted to care of DR ARAUJO. Admited to TELE. Will go to room 111A. Belongings list completed. Report to JACK BENITEZ.
--- NOTE | 2020-05-24 23:30 | NUR ---
PT ARRIVED FROM ER VIA GURNEY. RECEIVED REPORT FROM TRENTON (PLASTIC TOOL MAKER) PRIOR. PT AAOX4, AMBULATORY, AND ABLE TO MAKE NEEDS KNOWN. PT CALM AND COOPERATIVE TO CARE. RESPIRATIONS EVEN AND UNLABORED TO ROOM AIR. LUNG SOUNDS DIMINISHED. PT DENIES ANY SOB AT THIS TIME. ABDOMEN IS SOFT AND NON-TENDER. SKIN IS WARM, DRY, AND INTACT. PT WITH BILATERAL PITTING EDEMA +1 ON LOWER EXTREMITIES. PT WITH IV ACCESS G18 ON LEFT AC PATENT AND INTACT, SALINE LOCKED. PT DENIES ANY PAIN OR DISCOMFORT AT THIS TIME. PT WELCOMED AND ORIENTED TO ROOM. PT PROVIDED WITH GROOMING KIT AND SNACKS. VS STABLE. PT HOOKED TO TELE MONITORING. MRSA SWAB DONE. PT KEPT COMFORTABLE. NO REQUESTS MADE. SAFETY MEASURES IN PLACE. CALL LIGHT WITHIN REACH. WILL CONTINUE TO MONITOR.
[2020-05-24 23:52] VITALS: BP 113/92
[2020-05-25] VITALS: BP 130/60
--- NOTE | 2020-05-25 01:56 | NUR ---
PT HUNGRY, REQUESTING FOR FOOD. SNACKS AND DRINK PROVIDED. PT DENIES ANY PAIN OR DISCOMFORT AT THIS TIME. CALL LIGHT WITHIN REACH, WILL CONTINUE TO MONITOR.
[2020-05-25 04:00] VITALS: BP 121/65
--- NOTE | 2020-05-25 04:03 | NUR ---
VS TAKEN, STABLE. PT DENIES ANY CHEST PAIN OR SOB. MG 1.7. MG RIDER GIVEN PER ORDER. PT KEPT COMFORTABLE. CALL LIGHT WITHIN REACH. WILL CONTINUE TO MONITOR.
--- NOTE | 2020-05-25 06:02 | NUR ---
PT ASLEEP. VISIBLE CHEST RISE AND FALL NOTED. PT NOT IN DISTRESS. PT KEPT COMFORTABLE. CALL LIGHT WITHIN REACH. WILL CONTINUE TO MONITOR.
[2020-05-25 06:53] LABS: BASOPHILS # (AUTO) 0.1 K/uL (0.00-0.22); BASOPHILS % (AUTO) 0.8 % (0.0-2.0); EOSINOPHILS # (AUTO) 0.1 K/uL (0-0.4); EOSINOPHILS % (AUTO) 1.7 % (0.0-4.0); HEMATOCRIT 46.7 % (36-52); HEMOGLOBIN 15.1 g/dL (12.0-18.0); LYMPHOCYTES # (AUTO) 2.4 K/uL (2.0-11.5); LYMPHOCYTES % (AUTO) 37.5 % (20.5-51.1); MEAN CORPUSCULAR HEMOGLOBIN 29 pg (27-31); MEAN CORPUSCULAR HGB CONC 32 g/dL (33-37); MEAN CORPUSCULAR VOLUME 88.1 fL (80-94); MONOCYTES # (AUTO) 0.7 K/uL (0.8-1.0); MONOCYTES % (AUTO) 10.7 % (1.7-9.3); NEUTROPHILS # (AUTO) 3.2 K/uL (1.8-7.7); NEUTROPHILS % (AUTO) 49.3 % (42.2-75.2); PLATELET COUNT (AUTO) 230 K/uL (140-450); RED CELL DISTRIBUTION WIDTH 16.1 % (11.6-13.7); WHITE BLOOD COUNT (AUTO) 6.4 K/uL (4.8-10.8)
[2020-05-25 07:06] LABS: ANION GAP 9.7 (8-16); CARBON DIOXIDE 30.6 mmol/L (21-32); CREATININE 1.3 mg/dL (0.6-1.3); POTASSIUM 4.3 mmol/L (3.5-5.1)
[2020-05-25 07:10] LABS: MAGNESIUM 2.4 mg/dL (1.8-2.4); PHOSPHORUS 4.2 mg/dL (2.5-4.9)
[2020-05-25] MEDS: HYDROcodone/APAP 5/325 MG 1 TAB TAB PO PRN (07:46)
--- NOTE | 2020-05-25 07:46 | NUR ---
PT COMPLAINING OF FOOT PAIN 12/12. PRN PAIN MEDICATION GIVEN ORDERED. WILL CONTINUE TO MONITOR.
[2020-05-25 08:00] VITALS: BP 119/93
--- NOTE | 2020-05-25 08:52 | NUR ---
VS STABLE. SCHEDULED MEDS GIVEN ORDERED. NO COMPLAINTS OF PAIN OR DISCOMFORT AT THIS TIME. PT KEPT COMFORTABLE. SAFETY MEASURES IN PLACE. CALL LIGHT WITHIN REACH. WILL CONTINUE TO MONITOR.
[2020-05-25] MEDS ORDERED: FUROSEMIDE 40 MG/4 ML VIAL IVP SCH (09:00)
--- NOTE | 2020-05-25 10:38 | NUR ---
ROUNDS MADE. PT SLEEPING. NO S/SX OF DISTRESS NOTED. PT KEPT COMFORTABLE. PT WAS ABLE TO CONSUME 80% OF BREAKFAST TRAY. SAFETY MEASURES IN PLACE. WILL CONTINUE TO MONITOR.
--- NOTE | 2020-05-25 12:22 | NUR ---
VS STABLE. PT IN BED RESTING. DENIES ANY PAIN OR SOB. PT KEPT COMFORTABLE. NO REQUESTS MADE. CALL LIGHT WITHIN REACH. WILL CONTINUE TO MONITOR.
--- NOTE | 2020-05-25 12:59 | NUR ---
ENDORSED TO WYATT BENITEZ FOR CONTINUITY OF CARE
[2020-05-25 16:00] VITALS: BP 121/96
--- NOTE | 2020-05-25 16:44 | NUR ---
SPOKE TO DR. ARAUJO: CLARIFIED PT IS NOT GOING HOME TODAY HE STATED, PT WAS UNDER THE IMPRESSION HE WAS BEING DISCHARGED BUT HE MISUNDERSTOOD, HE WILL NOT BE DISCHARGED AND WILL NEED TO REMAIN HOSPITALIZED. WILL PLACE BACK ON MONITOR SINCE HE REMOVED MONITOR AND WAS DRESSED.
[2020-05-25] MEDS ORDERED: WARFARIN 5 MG TAB PO SCH (17:00)
[2020-05-25] MEDS: ONDANSETRON 4 MG/2 ML VIAL IM/IVP PRN (17:07)
--- NOTE | 2020-05-25 17:14 | NUR ---
ADMINISTERED COUMADIN 5MG AND ONDANSETRON PRESCRIBED,IV PATENT, FLUSHED WITH 3CC NS BEFORE AND AFTER ONDANSETRON ADMINISTRATION. PT C/O EXTREME NAUSEA. PT TOLERATED PROCEDURE WELL PT RESTING COMFORTABLE, CALL LIGHT WITHIN REACH
--- NOTE | 2020-05-25 19:34 | NUR ---
ENDORSED PT TO NIGHT NURSE, PT STABLE, COMFORTABLE IN BED
[2020-05-25] MEDS: METOPROLOL 25 MG TAB PO SCH (22:21)
[2020-05-25 22:22] VITALS: BP 118/84
[2020-05-26] MEDS: ONDANSETRON 4 MG/2 ML VIAL IM/IVP PRN (01:38)
[2020-05-26 02:15] VITALS: BP 114/87
[2020-05-26 06:45] LABS: BASOPHILS # (AUTO) 0.1 K/uL (0.00-0.22); BASOPHILS % (AUTO) 1.2 % (0.0-2.0); EOSINOPHILS # (AUTO) 0.1 K/uL (0-0.4); EOSINOPHILS % (AUTO) 1.5 % (0.0-4.0); HEMATOCRIT 44.2 % (36-52); HEMOGLOBIN 14.6 g/dL (12.0-18.0); LYMPHOCYTES # (AUTO) 2.3 K/uL (2.0-11.5); LYMPHOCYTES % (AUTO) 41.6 % (20.5-51.1); MEAN CORPUSCULAR HEMOGLOBIN 29 pg (27-31); MEAN CORPUSCULAR HGB CONC 33 g/dL (33-37); MEAN CORPUSCULAR VOLUME 86.9 fL (80-94); MONOCYTES # (AUTO) 0.6 K/uL (0.8-1.0); NEUTROPHILS # (AUTO) 2.6 K/uL (1.8-7.7); NEUTROPHILS % (AUTO) 45.7 % (42.2-75.2); PLATELET COUNT (AUTO) 192 K/uL (140-450); RED BLOOD CELL COUNT(AUTO) 5.08 MIL/uL (4.20-6.10); RED CELL DISTRIBUTION WIDTH 15.5 % (11.6-13.7); WHITE BLOOD COUNT (AUTO) 5.6 K/uL (4.8-10.8)
[2020-05-26 07:02] LABS: ANION GAP 11.6 (8-16); CARBON DIOXIDE 27.8 mmol/L (21-32); CREATININE 1.1 mg/dL (0.6-1.3); MAGNESIUM 1.8 mg/dL (1.8-2.4); PHOSPHORUS 4.6 mg/dL (2.5-4.9); POTASSIUM 4.4 mmol/L (3.5-5.1)
--- NOTE | 2020-05-26 07:07 | NUR ---
FNS referral/consult received on 05/26/20 for [no reason given]. Consult reason does not meet high risk criteria per hospital policy. Patient will be seen and assessed according to the nutrition care policy. Nyla Cuello MS, RDN
--- NOTE | 2020-05-26 07:08 | NUR ---
PATIENT HAS BEEN SCREENED AND CATEGORIZED MODERATE NUTRITION RISK. PATIENT WILL BE SEEN WITHIN 3-5 DAYS OF ADMISSION. 05/28/20-05/30/20 SANDRA REBOLLEDO MS, RDN
[2020-05-26 08:00] VITALS: BP 123/98
[2020-05-26] MEDS ORDERED: FUROSEMIDE 40 MG/4 ML VIAL IVP SCH (09:00)
[2020-05-26] MEDS: POTASSIUM CHLORIDE 10 MEQ TABER PO SCH (09:00)
[2020-05-26] MEDS: lisinopriL 10 MG TAB PO SCH (09:17)
[2020-05-26] MEDS: METOPROLOL 25 MG TAB PO SCH ×2 (09:17→20:18)
--- NOTE | 2020-05-26 09:24 | NUR ---
SCHEDULED MEDICATIONS DUE GIVEN. WILL CONTINUE TO MONITOR.
[2020-05-26 10:06] LABS: T4 (THYROXINE) 4.9 ug/dL (4.5-12.0)
[2020-05-26] MEDS ORDERED: WARFARIN 5 MG TAB PO SCH (10:38)
--- NOTE | 2020-05-26 11:30 | NUR ---
PATIENT LYING DOWN IN BED SLEEPING, AROUSABLE BY VOICE. NO DISTRESS NOTED. CONDITION UNCHANGED. WILL CONTINUE TO MONITOR.
[2020-05-26 12:00] VITALS: BP 114/83
--- NOTE | 2020-05-26 14:30 | NUR ---
PATIENT LYING DOWN IN BED WATCHING TV. NO DISTRESS NOTE. CONDITION UNCHANGED. WILL CONTINUE TO MONITOR.
[2020-05-26 16:00] VITALS: BP 116/79
[2020-05-26] MEDS: FUROSEMIDE 40 MG/4 ML VIAL IVP SCH (18:14)
--- NOTE | 2020-05-26 18:14 | NUR ---
SCHEDULED MEDICATIONS DUE GIVEN. WILL CONTINUE TO MONITOR.
--- NOTE | 2020-05-26 19:20 | NUR ---
GAVE REPORT TO CLINICAL ALLERGIST NURSE FOR CONTINUITY OF CARE. PATIENT IN STABLE CONDITION.
--- NOTE | 2020-05-26 19:25 | NUR ---
RECEIVED REPORT FROM DAY NURSE. PT AAOX4 SITTING UP IN BED WATCHING TELEVISION. PT AMBULATING IN ROOM. NSR ON MONITOR, PALPABLE PULSES TO PERIPHERAL EXTREMITIES, NO EDEMA NOTED. BREATH SOUNDS CLEAR/ DIMINISHED @ BASES. NO COUGH NOTED. DENIES CP/SOB @ THIS TIME. PT TOLERATING DIET, PT EDUCATED ABOUT WATCHING INTAKE/OUTPUT, ENCOURAGED TO MONITOR WATER INTAKE. PT VOIDING IN URINAL/BATHROOM. SKIN INTACT. IV TO L AC 18 G SL, PATENT. NO S/S OF ACUTE DISTRESS NOTED. PT DENIES PAIN @ THIS TIME. BED LOCKED IN LOWEST POSITION, HOB>30DEGREES. WILL CONTINUE TO OBSERVE.
[2020-05-26 20:00] VITALS: BP 120/73
[2020-05-26] MEDS ORDERED: CRUSHER, PILL MC ONE (20:15)
--- NOTE | 2020-05-26 20:15 | NUR ---
PT C/O CONSTIPATION; PRN COLACE GIVEN. WILL CONTINUE TO OBSERVE
[2020-05-27] VITALS: BP 96/65
--- NOTE | 2020-05-27 00:15 | NUR ---
PT HAS EYES CLOSED; AROUSABLE. DENIES CP/SOB @ THIS TIME. WILL CONTINUE TO OBSERVE.
[2020-05-27 04:00] VITALS: BP 105/71
--- NOTE | 2020-05-27 06:17 | NUR ---
PT NAUSEATED THIS AM. ZOFRAN 4 MG IVP GIVEN. WILL CONTINUE TO OBSERVE
[2020-05-27] MEDS: ONDANSETRON 4 MG/2 ML VIAL IM/IVP PRN ×2 (06:18→12:00)
[2020-05-27] MEDS: HYDROcodone/APAP 5/325 MG 1 TAB TAB PO PRN (06:53)
--- NOTE | 2020-05-27 07:15 | NUR ---
REPORT GIVEN TO DAY SHIFT RN. NO ACUTE DISTRESS NOTED.
[2020-05-27 07:31] LABS: MAGNESIUM 1.8 mg/dL (1.8-2.4); PHOSPHORUS 3.9 mg/dL (2.5-4.9)
[2020-05-27 07:33] LABS: HEMATOCRIT 44.7 % (36-52); HEMOGLOBIN 14.6 g/dL (12.0-18.0); LYMPHOCYTES # (AUTO) 1.6 K/uL (2.0-11.5); LYMPHOCYTES % (AUTO) 25.4 % (20.5-51.1); MEAN CORPUSCULAR HEMOGLOBIN 29 pg (27-31); MEAN CORPUSCULAR HGB CONC 33 g/dL (33-37); MEAN CORPUSCULAR VOLUME 87.4 fL (80-94); MONOCYTES # (AUTO) 2.5 K/uL (0.8-1.0); MONOCYTES % (AUTO) 39.7 % (1.7-9.3); NEUTROPHILS # (AUTO) 2.2 K/uL (1.8-7.7); NEUTROPHILS % (AUTO) 34.9 % (42.2-75.2); PLATELET COUNT (AUTO) 204 K/uL (140-450); RED BLOOD CELL COUNT(AUTO) 5.12 MIL/uL (4.20-6.10); RED CELL DISTRIBUTION WIDTH 15.5 % (11.6-13.7); WHITE BLOOD COUNT (AUTO) 6.3 K/uL (4.8-10.8)
[2020-05-27 07:36] LABS: ANION GAP 12.3 (8-16); CARBON DIOXIDE 30.1 mmol/L (21-32); CREATININE 1.1 mg/dL (0.6-1.3); POTASSIUM 4.4 mmol/L (3.5-5.1)
--- NOTE | 2020-05-27 07:46 | NUR ---
REC'D REPORT FROM NIGHT NURSE, PT SLEEPING, STABLE, CALL LIGHT WITHIN REACH, BED LOWEST POSITION, IV SITE DRY,CLEAN INTACT, SALINE LOCKED. WILL CONTINUE TO MONITOR
[2020-05-27 08:23] LABS: PROTHROMBIN TIME 12.2 secs (10.8-13.4)
[2020-05-27] MEDS: FUROSEMIDE 40 MG/4 ML VIAL IVP SCH (08:35)
[2020-05-27] MEDS: POTASSIUM CHLORIDE 10 MEQ TABER PO SCH (08:38)
[2020-05-27] MEDS: METOPROLOL 25 MG TAB PO SCH (08:39)
[2020-05-27] MEDS: lisinopriL 10 MG TAB PO SCH (08:39)
[2020-05-27] MEDS ORDERED: METO25TA PO (08:42)
[2020-05-27] MEDS ORDERED: LISI10TA11 PO (08:42)
[2020-05-27] MEDS ORDERED: POTA10CE85 PO (08:42)
[2020-05-27] MEDS ORDERED: WARF-82 PO (08:42)
[2020-05-27] MEDS ORDERED: FURO-570 PO (08:42)
--- NOTE | 2020-05-27 08:49 | NUR ---
MEDICATIONS ADMINISTERED AT PRESCRIBED, FUROSEMIDE 40 IV GIVEN, IV SITE FLUSHING WELL, PT LUNGS CLEAR, S1S2 NOTED, ABD SOFT NONTENDER, PT STATES BELLYBUTTON IS PROTRUDING D/T AN UMBILICAL HERNIA, B.L.FEET SWELLING, PULSES WEAK, NON PITTING EDEMA +2, CAP REFILL >3. SKIN INTACT,.PT TOLERATED MEDICATION ADMINISTRATION WELL
[2020-05-27 08:55] VITALS: BP 115/66
--- NOTE | 2020-05-27 10:31 | NUR ---
MILENA FREY: SCHEDULED PATIENT A FOLLOW UP APPOINTMENT WITH [facility] STRATEGY MANAGER BERNARDA ASENCIO [phone]. THIS WILL BE A TELEPHONE APPOINTMENT THEY WILL CONTACT THE PATIENT BETWEEN 9:00 AM-12:00 PM ON Wednesday. WILL PROVIDE PATIENT WITH AN APT REMINDER. Addendum: 05/27/20 at 1438 by Kelsey Holguin CM MILENA FREY: SPOKE TO SUZIE AT [facility] [phone] PATIENTS PRESCRIPTION FOR XERALTO HAS ALREADY BEEN SENT OVER AND IS READY FOR RIBBER. NOTIFIED CHARGE NURSE LLOYD THAT EVERYTHING HAS BEEN SET UP FOR PATIENT. SHE STATED THAT PATIENT IS HOMELESS.
[2020-05-27] MEDS ORDERED: RIVA15TA1 PO (10:45)
--- NOTE | 2020-05-27 12:00 | NUR ---
PT COMPLAINING OF EXTREME NAUSEA, WOULD LIKE MEDICATION. ZOFRAN ADMINISTERED PER PRN MD ORDER, FLUSHED IV CATHETER WITH 3ML PRIOR AND AFTER ADMINISTRATION OF MEDICATION. PT TOLERATED PROCEDURE WELL.
--- NOTE | 2020-05-27 15:20 | NUR ---
PT DISCHARGED VIA WHEELCHAIR IN STABLE CONDITION. IV REMOVED, INTACT.PT TOLERATED RPOCEDURE WELL. BANDAID APPLIED. DISCHARGE SUMMARY EXPLAINED IN DETAIL IN ORDER FOR PT. TO SEEK TREATMENT NOEMI RE: MEDICATION TITRATION. PT VERBALLY UNDERSTOOD HE IS TO GO TO PHARMACY TODAY AND SILK WINDING MACHINE OPERATOR MEDICATION. BUS PASS GIVEN FOR TRANSPORT HOME. ALL BELONGINS WITH PATIENT UPON DISCHARGE.
[2020-05-27] MEDS ORDERED: WARFARIN 5 MG TAB PO SCH (17:00)
== END 2020-05-27 15:25 | disposition home or self-care (01) | DRG 134 ==
LOC: MED 14:40 → MTU 18:56
DX: I26.99 Other pulmonary embolism without acute cor pulmonale (principal); I50.43 Acute on chronic combined systolic (congestive) and diastolic (congestive) heart failure; J44.9 Chronic obstructive pulmonary disease, unspecified; I42.9 Cardiomyopathy, unspecified; I11.0 Hypertensive heart disease with heart failure; Z20.828 Contact with and (suspected) exposure to other viral communicable diseases; Z59.0 Homelessness; Z91.19 Patient's noncompliance with other medical treatment and regimen; F17.200 Nicotine dependence, unspecified, uncomplicated; F15.10 Other stimulant abuse, uncomplicated; R73.03 Prediabetes; E83.42 Hypomagnesemia; J98.11 Atelectasis
CPT/HCPCS: 36415; 71045; 80048; 80053; 80305; 81003; 82150; 83036; 83690; 83735; 83880; 84100; 84134; 84436; 84443; 84484; 85025; 85610; 85730; 87081; 93005; 96374; 96375; 99285; J1644; J1940; J2060; J2270; J2405; J3475

== ENCOUNTER 2022-05-18 13:14 | Inpatient (IN) | payer MEDICAID ==
[~2022-05-18] VITALS: Ht 185.4 cm; Wt 81.6 kg
[~2022-05-18 13:14] MED LIST changes: -AZIT250T3 PO; -DABI150C PO; +FURO-570 PO; +LISI10TA30 PO; +POTA10CE85 PO; +RIVA15TA1 PO
--- NOTE | 2022-05-18 13:15 | NUR ---
PT W/C TO BED 4
[2022-05-18 13:26] VITALS: BP 140/98
--- NOTE | 2022-05-18 13:33 | NUR ---
NANO MADE AWARE OF HR 148
--- NOTE | 2022-05-18 13:54 | NUR ---
56 Y/O MALE BIB SELF C/O SOB X 1 WEEK WITH CP X 2 DAYS PAIN 09/11, DENIES ANY MEDICATION FOR PAIN, PT STATED THAT "HE;S BEEN OUT OF HIS WATER PILLX 1 WEEK" HX-COPD,HTN, CHF NKA
[2022-05-18 13:56] LABS: BASOPHILS # (AUTO) 0.1 K/uL (0.00-0.22); BASOPHILS % (AUTO) 0.9 % (0.0-2.0); EOSINOPHILS % (AUTO) 0.5 % (0.0-4.0); HEMATOCRIT 44.9 % (36-52); HEMOGLOBIN 14.8 g/dL (12.0-18.0); LYMPHOCYTES # (AUTO) 1.7 K/uL (2.0-11.5); LYMPHOCYTES % (AUTO) 20.9 % (20.5-51.1); MEAN CORPUSCULAR HEMOGLOBIN 29 pg (27-31); MEAN CORPUSCULAR HGB CONC 33 g/dL (33-37); MEAN CORPUSCULAR VOLUME 87.3 fL (80-94); MONOCYTES # (AUTO) 0.7 K/uL (0.8-1.0); MONOCYTES % (AUTO) 9.1 % (1.7-9.3); NEUTROPHILS # (AUTO) 5.6 K/uL (1.8-7.7); NEUTROPHILS % (AUTO) 68.6 % (42.2-75.2); PLATELET COUNT (AUTO) 204 K/uL (140-450); RED BLOOD CELL COUNT(AUTO) 5.14 MIL/uL (4.20-6.10); RED CELL DISTRIBUTION WIDTH 16.1 % (11.6-13.7); WHITE BLOOD COUNT (AUTO) 8.2 K/uL (4.8-10.8)
--- NOTE | 2022-05-18 13:58 | NUR ---
X-Ray at bedside.
[2022-05-18 14:13] LABS: ALBUMIN 3.3 g/dL (3.4-5.0); ANION GAP 14.1 (8-16); CARBON DIOXIDE 24.8 mmol/L (21-32); CREATININE 1.1 mg/dL (0.6-1.3); POTASSIUM 4.9 mmol/L (3.5-5.1); TOTAL BILIRUBIN 2.9 mg/dL (0.0-1.0)
--- NOTE | 2022-05-18 14:15 | NUR ---
DR MORALES AT BEDSIDE
[2022-05-18] MEDS ORDERED: DILTIAZEM 25 MG/5 ML VIAL IVP ONE ×2 (14:35→15:55)
[2022-05-18] MEDS ORDERED: HYDROcodone/APAP 5/325 MG 1 TAB TAB PO ONE (15:05)
[2022-05-18] MEDS ORDERED: FUROSEMIDE 20 MG/2 ML VIAL IVP ONE (18:35)
--- NOTE | 2022-05-18 19:23 | NUR ---
Pt report given to MARCE BENITEZ. Transfer of care at this time.
--- NOTE | 2022-05-18 20:20 | NUR ---
Report given to receiving RN. VSS. Pt aware and agreeable to admission. Pt has all belongings.
--- NOTE | 2022-05-18 20:30 | NUR ---
PATIENT WAS BROUGHT TO MST UNIT FROM ER AWAKE ALERT ORIENTED ON ROOM AIR. NO DISTRESS NOTED AT THIS TIME. RESPIRATION EVEN UNLABORED. NO COMPLAINTS OF PAIN. MRSA SCREENING DONE. CALL LIGHT WITHIN REACH. ALL SAFETY PRECAUTIONS ARE IN PLACE. SKIN INTACT NO WOUND.
[2022-05-19] VITALS: BP 133/91
[2022-05-19 04:00] VITALS: BP 136/88
[2022-05-19 05:30] LABS: BASOPHILS # (AUTO) 0.1 K/uL (0.00-0.22); BASOPHILS % (AUTO) 1.3 % (0.0-2.0); EOSINOPHILS # (AUTO) 0.1 K/uL (0-0.4); EOSINOPHILS % (AUTO) 1.6 % (0.0-4.0); HEMATOCRIT 44.3 % (36-52); HEMOGLOBIN 14.6 g/dL (12.0-18.0); LYMPHOCYTES # (AUTO) 2.2 K/uL (2.0-11.5); LYMPHOCYTES % (AUTO) 31.1 % (20.5-51.1); MEAN CORPUSCULAR HEMOGLOBIN 29 pg (27-31); MEAN CORPUSCULAR HGB CONC 33 g/dL (33-37); MEAN CORPUSCULAR VOLUME 86.3 fL (80-94); MONOCYTES # (AUTO) 0.9 K/uL (0.8-1.0); MONOCYTES % (AUTO) 12.3 % (1.7-9.3); NEUTROPHILS # (AUTO) 3.7 K/uL (1.8-7.7); NEUTROPHILS % (AUTO) 53.7 % (42.2-75.2); PLATELET COUNT (AUTO) 207 K/uL (140-450); RED BLOOD CELL COUNT(AUTO) 5.13 MIL/uL (4.20-6.10); RED CELL DISTRIBUTION WIDTH 16.2 % (11.6-13.7); WHITE BLOOD COUNT (AUTO) 6.9 K/uL (4.8-10.8)
[2022-05-19 06:44] LABS: ALBUMIN 2.8 g/dL (3.4-5.0); ANION GAP 13.3 (8-16); CARBON DIOXIDE 26.2 mmol/L (21-32); CREATININE 1.2 mg/dL (0.6-1.3); POTASSIUM 4.5 mmol/L (3.5-5.1); TOTAL BILIRUBIN 2.2 mg/dL (0.0-1.0)
--- NOTE | 2022-05-19 07:43 | NUR ---
GAVE REPORT TO DAY SHIFT NURSE FOR CONTINUITY OF CARE.
[2022-05-19 08:00] VITALS: BP 116/93
--- NOTE | 2022-05-19 08:00 | NUR ---
RECEIVED REPORT FROM DESIGN MAINTENANCE ENGINEER FOR CONTINUITY OF CARE. PATIENT ALERT AWAKE ORIENTED X4, NOT IN ANY DISTRESS NOTED. DENIES PAIN, ASSESSMENT INITIATED. PATIENT VERBALIZED THAT HIS HUNGRY. WITH HEPLOCK ON HIS LEFT AC G 20 DRY AND INTACT. ON MONITOR SHOWS UNCONTROLLED A. FIB. CALL LIGHT WITHIN REACH. NEEDS ATTENDED. WILL CONTINUE TO MONITOR.
[2022-05-19] MEDS ORDERED: FUROSEMIDE 20 MG/2 ML VIAL IVP SCH ×3 (09:00→17:34)
[2022-05-19] MEDS ORDERED: HYDROcodone/APAP 7.5/325 MG 1 TAB PO PRN (09:05)
[2022-05-19] MEDS ORDERED: POTASSIUM CHLORIDE 10 MEQ TABER PO PRN (09:05)
[2022-05-19] MEDS ORDERED: ONDANSETRON 4 MG/2 ML VIAL IVP PRN (09:05)
[2022-05-19] MEDS ORDERED: NITROGLYCERIN 0.4 MG TAB SL PRN (09:05)
[2022-05-19] MEDS ORDERED: ACETAMINOPHEN 325 MG TAB PO PRN (09:05)
[2022-05-19] MEDS ORDERED: MAG SULF 2000 MG/WATER PREMIX 50 ML IV PRN (09:05)
[2022-05-19 10:14] LABS: CHOL/HDL RATIO 1.5 (1-4.5); FREE T4 (FREE THYROXINE) 1.03 ng/dL (0.76-1.46); MAGNESIUM 1.6 mg/dL (1.8-2.4); PHOSPHORUS 3.7 mg/dL (2.5-4.9)
[2022-05-19 10:15] LABS: PROTHROMBIN TIME 16.5 secs (10.8-13.4)
--- NOTE | 2022-05-19 10:24 | NUR ---
PATIENT HAS BEEN SCREENED AND CATEGORIZED MODERATE NUTRITION RISK. PATIENT WILL BE SEEN WITHIN 3-5 DAYS OF ADMISSION. 05/18/22-05/23/22 [address]VIEW[address] BY [address]
[2022-05-19] MEDS: NACL 0.9% 1,000 ML IV SCH (10:48)
[2022-05-19 12:00] VITALS: BP 100/68
--- NOTE | 2022-05-19 13:00 | NUR ---
DISCHARGE PLANNING PATIENT IS A 56 YEAR-OLD MALE ADMITTED IN THE [facility]/ED ON 05/18/2022. DUE TO COMPLAINTS OF SHORTNESS OF BREATH FOR ABOUT TWO WEEKS. PATIENT HAS MEDICAL HISTORY WITH COPD, CHF WITH EF 5-10% ON LASIX, ATRIAL FIBRILLATION ON XARELTO, AND HYPERTENSION. SW MEET WITH PATIENT AT BEDSIDE TO DISCUSS AND GATHER HIS COLLATERAL INFORMATION. PATIENT REPORTED BEEN HOMELESS FOR ABOUT 5 YEARS AND LIVING IN THE [place], AND STAYING AT A FRIENDS HOMES. PER PATIENT HE WILL BE STAYING AT HIS FRIENDS PETRA VARGAS IN HER HOME IN [place] WHEN HE IS DISCHARGE FROM [facility]. PER PATIENT HE HAS NO FAMILY OR FAMILY SUPPORT FROM HIS FAMILY ONLY FROM HIS FRIENDS. PATIENT HAS NO A.D AND WAS NOT INTERESTED ON GETTING INF. FORMS PROVIDED BY [facility]. PATIENT REPORTED THAT HIS EMERGENCY CONTACT IS HIS FRIEND PETRA VARGAS . PATIENT REPORTED NOT HAVING ANY ISSUES GETTING OR TAKING HIS MEDICATIONS FROM THE [facility] IN [facility]. PATIENT STATED BEEN INDEPENDENT NOT NEEDING OR HAVING DME. SW AND PATIENT DISCUSS ABOUT THE IMPORTANCE OF MAKING A FOLLOW UP APPOINTMENT WITH HIS PCP MD. CHRISTA DAY WITHIN 5-7 DAYS OF DISCHARGE FROM [facility]. PATIENT AGREED AND REPORTED THAT HE HAS NOT SEEN HIS PCP IN A WHILE AND THAT HE WILL BE MAKING HIS OWN APPOINTMENT AND DECLINED FOR SW TO SCHEDULED HIS APPOINTMENT. REPORTED THAT HE WILL KNOW WHEN HE IS ABLE TO GO TO HIS APPOINTMENT AND WANTS TO DO IT HIM SELF. PER PATIENT HE DECLINED SW RESOURCES TO EMERGENCY SHELTERS PROVIDED BY [facility] AND STATED THAT HE WILL BE CALLING HIS FRIEND PETRA VARGAS AND WILL BE GOING TO STAY WITH HER AT HER HOME WHEN HE IS READY AND STABLE TO DISCHARGE. SW STILL LEFT RESOURCES PROVIDED TO PATIENT FOR SHELTERS. AND HE AGREED AT THE END OF MEETING. PER PATIENT HIS FRIEND PETRA VARGAS WILL PICK HIM UP AND TAKE HIM BACK HOME WHEN HE IS DISCHARGE FROM [facility]. SW THANKED HIM FOR HIS INFORMATION. SW/CM WILL FOLLOW UP NEEDED.
--- NOTE | 2022-05-19 14:00 | NUR ---
PATIENT IS RESTING IN BED, DENIES PAIN, WANTS TO SLEEP. WILL CONTINUE TO MONITOR.
[2022-05-19 16:00] VITALS: BP 136/88
[2022-05-19] MEDS ORDERED: DIGOXIN 0.25 MG/ML AMP IV ONE ×2 (17:10→18:50)
--- NOTE | 2022-05-19 18:00 | NUR ---
SEEN BY DR. CEJA, DISCUSSED PLAN OF CARE. CONTINUE LASIX AND ELIQUIS. PATIENT RESTING IN BED DENIES CHEST PAIN AND SOB. WILL CONTINUE TO MONITOR.
[2022-05-19 20:00] VITALS: BP 114/83
[2022-05-19] MEDS ORDERED: ATORVASTATIN 20 MG TAB PO SCH (21:00)
[2022-05-19] MEDS ORDERED: METOPROLOL 25 MG TAB PO SCH (21:00)
[2022-05-19] MEDS ORDERED: RIVAROXABAN 15 MG TAB PO SCH (21:00)
[2022-05-19] MEDS: DOCUSATE SODIUM 100 MG GELCAP PO SCH (21:22)
[2022-05-19] MEDS: METOPROLOL 25 MG TAB PO SCH (21:22)
--- NOTE | 2022-05-19 21:22 | NUR ---
DUE SCHEDULED MEDICATIONS ADMINISTERED.
--- NOTE | 2022-05-19 21:42 | NUR ---
PATIENT WELL RESTED ON ROOM AIR. BREATHING EVEN UNLABORED. NO COMPLAINTS OF PAIN. SAFETY MEASURES IN PLACE. CALL LIGHT WITHIN REACH.
[2022-05-20] VITALS: BP 127/102
[2022-05-20] MEDS ORDERED: DIGOXIN 0.25 MG TAB PO ONE ×4 (01:00→07:00)
[2022-05-20 04:00] VITALS: BP 133/103
[2022-05-20] MEDS: NACL 0.9% 1,000 ML IV SCH (05:05)
[2022-05-20] MEDS: METOPROLOL 25 MG TAB PO SCH ×2 (05:06→16:09)
--- NOTE | 2022-05-20 07:26 | NUR ---
REPORT GIVEN TO DAY SHIFT NURSE FOR CONTINUITY OF CARE.
[2022-05-20 08:00] VITALS: BP 134/88
[2022-05-20] MEDS ORDERED: FUROSEMIDE 40 MG TAB PO SCH (09:00)
[2022-05-20] MEDS ORDERED: lisinopriL 10 MG TAB PO SCH (09:00)
[2022-05-20] MEDS ORDERED: ASPIRIN 81 MG TAB.CHEW PO SCH (09:00)
[2022-05-20] MEDS: PANTOPRAZOLE 40 MG INJ VIAL IVP SCH (10:26)
[2022-05-20] MEDS: FUROSEMIDE 20 MG/2 ML VIAL IVP SCH ×2 (10:26→18:29)
[2022-05-20] MEDS: DOCUSATE SODIUM 100 MG GELCAP PO SCH ×2 (10:27→20:40)
[2022-05-20] MEDS: RIVAROXABAN 10 MG TAB PO SCH (10:32)
[2022-05-20 12:00] VITALS: BP 127/95
[2022-05-20 16:00] VITALS: BP 124/97
--- NOTE | 2022-05-20 19:25 | NUR ---
REPORT RECEIVED FROM DAYSHIFT RN. CARE TAKEN OVER FOR NIGHTSHIFT CARE. PT AWAKE ALERT AND IN NO APPARENT DISTRESS. PT DENIES PAIN AT THIS TIME. WILL CONTINUE TO MONITOR PATIENT.
[2022-05-20 20:00] VITALS: BP 135/70
[2022-05-21 04:00] VITALS: BP 146/72
[2022-05-21] MEDS: NACL 0.9% 1,000 ML IV SCH (05:05)
--- NOTE | 2022-05-21 07:26 | NUR ---
RECEIVED PT FROM DITCHER NURSE. PT IN BED WITH EYES CLOSED EVEN CHEST RISE AND FALL. RESPIRATIONS EVEN AND UNLABORED. IV ON LEFT A/C 20G. NO DISTRESS NOTED. CALL LIGHT WITHIN REACH. ALL SAFETY PRECAUTIONS IN PLACE.
--- NOTE | 2022-05-21 07:46 | NUR ---
Patient's Plan of Care was discussed and reviewed with BROKE BEATER:
[2022-05-21 08:00] VITALS: BP 133/97
[2022-05-21] MEDS: DOCUSATE SODIUM 100 MG GELCAP PO SCH (08:42)
--- NOTE | 2022-05-21 08:42 | NUR ---
ALL SCHEDULED MEDS ADMINISTERED. PT TOLERATING WELL.
[2022-05-21] MEDS ORDERED: DIGOXIN 0.25 MG TAB PO SCH (09:00)
[2022-05-21] MEDS ORDERED: METOPROLOL SUCCINATE 50 MG TABER PO SCH (09:00)
[2022-05-21] MEDS: RIVAROXABAN 10 MG TAB PO SCH (09:09)
[2022-05-21] MEDS: FUROSEMIDE 20 MG/2 ML VIAL IVP SCH (09:28)
[2022-05-21] MEDS: PANTOPRAZOLE 40 MG INJ VIAL IVP SCH (09:28)
[2022-05-21 09:45] LABS: BASOPHILS # (AUTO) 0.1 K/uL (0.00-0.22); BASOPHILS % (AUTO) 1.1 % (0.0-2.0); EOSINOPHILS # (AUTO) 0.1 K/uL (0-0.4); EOSINOPHILS % (AUTO) 1.7 % (0.0-4.0); HEMATOCRIT 46.9 % (36-52); HEMOGLOBIN 15.2 g/dL (12.0-18.0); LYMPHOCYTES # (AUTO) 1.8 K/uL (2.0-11.5); LYMPHOCYTES % (AUTO) 31.5 % (20.5-51.1); MEAN CORPUSCULAR HEMOGLOBIN 28 pg (27-31); MEAN CORPUSCULAR HGB CONC 32 g/dL (33-37); MEAN CORPUSCULAR VOLUME 87.6 fL (80-94); MONOCYTES # (AUTO) 0.6 K/uL (0.8-1.0); MONOCYTES % (AUTO) 11.4 % (1.7-9.3); NEUTROPHILS # (AUTO) 3.1 K/uL (1.8-7.7); NEUTROPHILS % (AUTO) 54.3 % (42.2-75.2); PLATELET COUNT (AUTO) 206 K/uL (140-450); RED BLOOD CELL COUNT(AUTO) 5.36 MIL/uL (4.20-6.10); RED CELL DISTRIBUTION WIDTH 16.1 % (11.6-13.7); WHITE BLOOD COUNT (AUTO) 5.7 K/uL (4.8-10.8)
[2022-05-21 09:46] LABS: ANION GAP 9.9 (8-16); CREATININE 1.1 mg/dL (0.6-1.3); POTASSIUM 3.9 mmol/L (3.5-5.1)
[2022-05-21] MEDS ORDERED: XAR10 PO (11:22)
[2022-05-21] MEDS ORDERED: LISI10TA30 PO (11:22)
[2022-05-21] MEDS ORDERED: METO50TE2 PO (11:22)
[2022-05-21] MEDS ORDERED: DIGO-81 PO (11:22)
[2022-05-21] MEDS ORDERED: FURO-570 PO (11:22)
--- NOTE | 2022-05-21 11:30 | NUR ---
DISCHARGE DISCUSSED WITH THE PT.
--- NOTE | 2022-05-21 13:00 | NUR ---
PT ASKING ABOUT DISCHARGE. INFORMED PT I AM WORKING ON HIS DISCHARGE ALREADY.
--- NOTE | 2022-05-21 15:20 | NUR ---
D/C PAPERS DISCUSSED WITH PT. NAME BAND REMOVED AND IV REMOVED. PT IN STABLE CONDITION. GATHERED BELONGINGS AND CALLED HIS RIDE. HE STATED HIS FRIEND ABBY WOULD BE HERE IN 30 MINUTES. PT REQUESTED TO WAIT AT FRONT OF LOBBY BECAUSE HE DOES NOT WANT TO KEEP HER WAITING ONCE SHES HERE. PT WALKED TO FRONT LOBBY. D/C TO HOME.
== END 2022-05-21 15:20 | disposition home or self-care (01) | DRG 201 ==
LOC: MED 13:14 → MTU 19:00
DX: I48.91 Unspecified atrial fibrillation (principal); I50.21 Acute systolic (congestive) heart failure; E43 Unspecified severe protein-calorie malnutrition; R65.10 Systemic inflammatory response syndrome (SIRS) of non-infectious origin without acute organ dysfunction; I42.9 Cardiomyopathy, unspecified; I11.0 Hypertensive heart disease with heart failure; E83.42 Hypomagnesemia; J44.9 Chronic obstructive pulmonary disease, unspecified; I36.1 Nonrheumatic tricuspid (valve) insufficiency; I34.0 Nonrheumatic mitral (valve) insufficiency; Z20.822 Contact with and (suspected) exposure to COVID-19; F15.90 Other stimulant use, unspecified, uncomplicated; Z79.84 Long term (current) use of oral hypoglycemic drugs; Z79.899 Other long term (current) drug therapy; Z68.23 Body mass index [BMI] 23.0-23.9, adult
CPT/HCPCS: 36415; 71045; 80048; 80053; 82140; 82150; 82948; 83036; 83605; 83690; 83735; 83880; 84100; 84439; 84443; 84484; 85025; 85610; 85730; 87040; 87081; 93005; 96374; 96376; 99285; C9113; J1160; J1940; J3475; J3490

== ENCOUNTER 2022-10-16 06:59 | Inpatient (IN) | payer MEDICAID ==
[~2022-10-16] VITALS: Ht 185.4 cm; Wt 89.4 kg
[~2022-10-16 06:59] MED LIST changes: -METO25TA PO; +METO50TE2 PO; -POTA10CE85 PO; -RIVA15TA1 PO; +XAR10 PO
--- NOTE | 2022-10-16 07:10 | NUR ---
PT BIBA BLS ER BED 4
[2022-10-16 07:13] VITALS: BP 128/79
[2022-10-16] MEDS ORDERED: ONDANSETRON 4 MG/2 ML VIAL IVP ONE (07:40)
[2022-10-16] MEDS ORDERED: MORPHINE SULFATE 2 MG/ML SYR IVP ONE ×2 (07:40→12:10)
--- NOTE | 2022-10-16 08:01 | NUR ---
TO CT VIA [facility]
[2022-10-16 08:04] LABS: BASOPHILS # (AUTO) 0.1 K/uL (0.00-0.22); EOSINOPHILS % (AUTO) 0.1 % (0.0-4.0); HEMATOCRIT 45.6 % (36-52); HEMOGLOBIN 14.9 g/dL (12.0-18.0); LYMPHOCYTES # (AUTO) 1.5 K/uL (2.0-11.5); LYMPHOCYTES % (AUTO) 14.5 % (20.5-51.1); MEAN CORPUSCULAR HEMOGLOBIN 29 pg (27-31); MEAN CORPUSCULAR HGB CONC 33 g/dL (33-37); MEAN CORPUSCULAR VOLUME 87.6 fL (80-94); MONOCYTES # (AUTO) 1.1 K/uL (0.8-1.0); MONOCYTES % (AUTO) 11.1 % (1.7-9.3); NEUTROPHILS # (AUTO) 7.5 K/uL (1.8-7.7); NEUTROPHILS % (AUTO) 73.3 % (42.2-75.2); PLATELET COUNT (AUTO) 232 K/uL (140-450); RED CELL DISTRIBUTION WIDTH 15.8 % (11.6-13.7); WHITE BLOOD COUNT (AUTO) 10.3 K/uL (4.8-10.8)
[2022-10-16 08:16] LABS: ALBUMIN 3.3 g/dL (3.4-5.0); ANION GAP 11.1 (8-16); CARBON DIOXIDE 32.2 mmol/L (21-32); CREATININE 1.2 mg/dL (0.6-1.3); POTASSIUM 4.3 mmol/L (3.5-5.1); TOTAL BILIRUBIN 0.6 mg/dL (0.0-1.0)
[2022-10-16 08:31] LABS: PROTHROMBIN TIME 11.9 secs (10.8-13.4)
--- NOTE | 2022-10-16 09:35 | NUR ---
TO CT VIA [facility]
--- NOTE | 2022-10-16 11:53 | NUR ---
PT URINATED ON FLOOR, INFORMED PT THAT HE SHOULD NOT URINATE ON THE FLOOR AND THAT RN IS ABLE TO ASSIST THE PT TO BATHROOM OR PROVIDE A URINAL IF HE WISHES TO URINATE. PT STATES UNDERSTANDING, URINAL PROVIDED. EVS PAGED FOR URINE AT BEDSIDE, NO BLOOD NOTED, CLEAR YELLOW URINE.
--- NOTE | 2022-10-16 11:55 | NUR ---
SWABS HANDED TO LAB
--- NOTE | 2022-10-16 12:08 | NUR ---
PT SOILED UNDERWEAR AND BED, BED CLEANED AND CHANGED, PT GIVEN NEW UNDERWEAR
--- NOTE | 2022-10-16 12:29 | NUR ---
NOTED DRESSING ON PT SACRUM, PT STATES THAT HE DOESNT WANT US TO TAKE IT OUT. UNABLE TO ASSESS WOUNDS AT THIS TIME
[2022-10-16] MEDS ORDERED: DEXT 5% /NACL 0.9% 1,000 ML IV ONE (12:50)
--- NOTE | 2022-10-16 13:06 | NUR ---
PER DR CARBALLO, CHANGED D5NS ORDER TO 80CC FROM 100CC, PT CONTINUE NPO
[2022-10-16] MEDS ORDERED: guaiFENesin DM 200/20 MG-10 ML 10 ML UDC PO PRN (13:15)
[2022-10-16] MEDS ORDERED: DOCUSATE SODIUM 100 MG GELCAP PO PRN (13:15)
[2022-10-16] MEDS ORDERED: ONDANSETRON 4 MG/2 ML VIAL IM/IVP PRN (13:15)
[2022-10-16] MEDS ORDERED: ACETAMINOPHEN 325 MG TAB PO PRN (13:15)
[2022-10-16] MEDS ORDERED: ZOLPIDEM 5 MG TAB PO PRN (13:15)
[2022-10-16] MEDS ORDERED: POTASSIUM CHLORIDE 10 MEQ TABER PO PRN (13:15)
[2022-10-16] MEDS: DEXT 5% / NACL 0.9% 1,000 ML IV SCH (13:22)
--- NOTE | 2022-10-16 13:44 | NUR ---
Patient will be admitted to care of DR ALEXUS CARBALLO. Admited to TELEMETRY. Will go to room 108B. Belongings list completed. Report to MUSA BENITEZ.
[2022-10-16 13:46] LABS: CHOL/HDL RATIO 1.7 (1-4.5); FREE T4 (FREE THYROXINE) 0.85 ng/dL (0.76-1.46); MAGNESIUM 1.8 mg/dL (1.8-2.4); PHOSPHORUS 3.9 mg/dL (2.5-4.9); THYROID STIMULATING HORMONE 0.49 uIU/mL (0.34-3.74)
[2022-10-16 16:00] VITALS: BP 103/63
--- NOTE | 2022-10-16 16:14 | NUR ---
1530- ADMITTED A 59YO MALE, HAD A FALL EPISODE LAST NIGHT AND DIAGNOSED WITH MULTIPLE LEFT RIB FRACTURES PATIENT HAVING SEVERE PAIN AND WAS MEDICATED WITH hYDROCODONE 1 TABLET. pATIENT REMINDED NOT TO WALK AROUND HE NEEDS TO STAY IN BED. PATIENT GIVEN INSTRUCTIONS NOT TO EST OR DRINK HE IS OMN NPO, EXPRESSED UNDERSTANDING. O2 AT 100% HIGH FLOW AND TOLERARTING IT WELL dR Zhong MADE AWARE OF PATIENT"SSTATUS AND GAVE ORDERS
--- NOTE | 2022-10-16 19:05 | NUR ---
ENDORSED WAS RECEIVED BY MUSA BENITEZ, PATIENT WAS ASLEEP DURING SHIFT REPORT. PATIENT SHOWS NO S/S OF PAIN/DISCOMFORT AT THIS TIME. PATIENT IS ON HIGH FLOW 100% BREATHING MACHINE. SATURATION NOTED 97%. PATIENT IS AMBULATORY BUT ENCOURAGED TO REMAIN IN BED D/T DIAGNOSIS OF PNEUMOTHORAX AND LEFT RIB FRACTURE. PATIENTS IV ON ODALIS IS INTACT AND PATENT. SIDE RAILS UP X 2. CALL LIGHT WITHIN REACH. [email or web address]
[2022-10-16 20:00] VITALS: BP 98/64
[2022-10-16] MEDS: HYDROcodone/APAP 7.5/325 MG 1 TAB PO PRN (20:00)
--- NOTE | 2022-10-16 20:53 | NUR ---
PT KEPT REMOVING HFNC BECAUSE HE SAID HE COULDNT HEAR ANYONE. PT O2 DROPPED TO 76 ON ROOM AIR. PLACED NC BACK ON PT AND EXPLAINED HE NEEDED TO KEEP IT ON. PT SAID HE WOULD. ONCE NC WAS PLACED BACK ON HIS O2 INCREASED TO 97%
[2022-10-17] VITALS: BP 111/75
--- NOTE | 2022-10-17 01:35 | NUR ---
PATIENT PACING IN ROOM NOT WEARING THE HIGH FLOW COMPLAINING IT IS TOO LOUD. PATIENT WAS EXPLAINED NO MORE WATER BECAUSE OF POSSIBLE PROCEDURE IN THE AM. PATIENT WAS EXPLAINED TO KEEP MONITOR ON SO WE CAN MONITOR HIS HEART. PATIENT ALLOWED NURSING TO PUT IT BACK ON X 3. [email or web address]
[2022-10-17] MEDS: DEXT 5% / NACL 0.9% 1,000 ML IV SCH (02:30)
--- NOTE | 2022-10-17 03:20 | NUR ---
CONTACTED THE MD FOR ANTHER PAIN RELIEF MEDICATION FOR THE PATIENT. NORCO DOES NOT SEEM TO WORK FOR THE PATIENT. IV LINE WAS RECENTLY REPLACED BECAUSE PATIENT ACCIDENTALLY PULLED IT OUT. PATIENT IS VERY NON COMPLIANT WITH REMAINING IN BED AND USING THE HIGH FLOW OXYGEN. PATIENT HAD ALL ITEMS REMOVED FROM ROOM BECAUSE NURSING NOTED PATIENT DRINKING FROM THE SINK WHEN IT WAS EXPLAINED NOT TO DRINK OR EAT UNLESS NURSING GIVE HIM THE WATER FOR MEDICATION. NURSING WILL AWAIT MD CALL BACK FOR POSSIBLE MEDICATION ORDER. MNURPH1
[2022-10-17 04:00] VITALS: BP 116/70
--- NOTE | 2022-10-17 04:47 | NUR ---
PT CONTINUES TO NOT USE HFNC. FOUND PT IN BED SLEEPING WITHOUT OXYGEN ON. PT WAS STABLE BUT I PLACES O2 BACK ON AND SOON I LFT HE ROOM HE PULLED IT OUT AGAIN AND WALKED TO TO [facility] [address]. ADVISED PT HE NEEDS TO REMAIN IN BED WITH THE OXYGEN AND PLACED IT BACK ON.
[2022-10-17 06:29] LABS: BASOPHILS % (AUTO) 0.7 % (0.0-2.0); EOSINOPHILS # (AUTO) 0.1 K/uL (0-0.4); EOSINOPHILS % (AUTO) 1.8 % (0.0-4.0); HEMATOCRIT 43.6 % (36-52); HEMOGLOBIN 14.2 g/dL (12.0-18.0); LYMPHOCYTES # (AUTO) 1.5 K/uL (2.0-11.5); LYMPHOCYTES % (AUTO) 22.1 % (20.5-51.1); MEAN CORPUSCULAR HEMOGLOBIN 29 pg (27-31); MEAN CORPUSCULAR HGB CONC 32 g/dL (33-37); MEAN CORPUSCULAR VOLUME 87.9 fL (80-94); MONOCYTES % (AUTO) 14.9 % (1.7-9.3); NEUTROPHILS % (AUTO) 60.5 % (42.2-75.2); PLATELET COUNT (AUTO) 212 K/uL (140-450); RED BLOOD CELL COUNT(AUTO) 4.96 MIL/uL (4.20-6.10); RED CELL DISTRIBUTION WIDTH 15.7 % (11.6-13.7); WHITE BLOOD COUNT (AUTO) 6.6 K/uL (4.8-10.8)
[2022-10-17] MEDS ORDERED: HALOPERIDOL IM 5 MG/ML VIAL IM PRN (06:45)
[2022-10-17] MEDS ORDERED: KETOROLAC 30 MG/ML VIAL IM PRN (06:45)
[2022-10-17 06:53] LABS: ANION GAP 10.2 (8-16); CARBON DIOXIDE 30.1 mmol/L (21-32); POTASSIUM 4.3 mmol/L (3.5-5.1)
--- NOTE | 2022-10-17 07:23 | NUR ---
ENDORSED PATIENT TO MUSA RN FOR CONTINUITY OF CARE. PATIENT WAS AGITATED DURING SHIFT CHANGE. ENDORSED NEW ORDERS TO BE CARRIED OUT FOR ONCE ONLY MEDICATIONS. [email or web address]
[2022-10-17 08:00] VITALS: BP 114/68
--- NOTE | 2022-10-17 08:00 | NUR ---
rECEIVED AWAKE, REDIRECTED BACK TO BED. sEEMS TO FORGET WHERE HE IS AT THIS TIME. c/o PAIN ON HIS LEFT CHEST AREA ON L RIB CAGE. MEDICATED WITH PRN MEDICATION ACCORDINGLY
--- NOTE | 2022-10-17 08:00 | NUR ---
ROUNDED ON PT FOUND HIM ON ROOM AIR SITTING AT BED. ASKED HOW HE WAS DOING PT STATED O2 HAD TO COME OFF TO US THE RESTROOM. MEASURED O2 SATS AND ON ROOM AIR HE WAS 84%. PUT PT BACK ON HFNC 30L 100% FIO2. PT IS NOW SATING 94% . NO DISTRESS NOTED. WILL CONTINUE TO MONITOR.
[2022-10-17 08:08] LABS: T4 (THYROXINE) 6.5 ug/dL (4.5-12.0)
[2022-10-17] MEDS: PANTOPRAZOLE 40 MG TABEC PO SCH (08:32)
[2022-10-17] MEDS: HYDROcodone/APAP 7.5/325 MG 1 TAB PO PRN ×4 (08:34→23:59)
[2022-10-17] MEDS: FUROSEMIDE 40 MG/4 ML VIAL IVP SCH ×3 (09:00→15:21)
[2022-10-17] MEDS: NICOTINE TRANSD SYS 14 MG/24 HR PATCH TD SCH (09:00)
[2022-10-17 12:00] VITALS: BP 108/53
--- NOTE | 2022-10-17 12:30 | NUR ---
aTE WITH FAIR APPETITE, SITTING ON THE SIDE OF THE BED. uP TO br TO VOID. gIVEN URINAL TO PREVENT FALLS
[2022-10-17] MEDS ORDERED: FUROSEMIDE 40 MG/5 ML ORAL SOL UDC ONE (15:25)
[2022-10-17 16:00] VITALS: BP 106/65
--- NOTE | 2022-10-17 17:10 | NUR ---
PT TAKES OFF HIS NASAL CANNULA AND HIS SATURATION DROPS TO THE MID 80S. I EXPLAINED THAT HE NEEDS TO KEEP IT ON. I PUT CANNULA BACK ON. WILL CONTINUE TO MONITOR.
[2022-10-17] MEDS: methylPREDNISolone SS 40 MG/ML VIAL IVP SCH (18:00)
--- NOTE | 2022-10-17 19:30 | NUR ---
RECEIVED REPORT FROM DAY SHIFT NURSE MUSA FOR CONTINUITY OF CARE. PATIENT IS A&O X2-3. PATIENT IS ON HIGH FLOW O2 AT 70%; BREATHING NORMAL WITH SYMMETRICAL RISE AND FALL OF CHEST. IV IS A 22G R HAND, RUNNING NS AT 100. PATIENT IS LYING IN BED IN SEMI-FOWLERS POSITION. BED IS IN LOWEST POSITION, WHEELS LOCKED, CALL LIGHT IN PLACE. WILL CONTINUE TO OBSERVE PATIENT.
[2022-10-17] MEDS: ALBUTEROL SULFATE/IPRATROPIU 3 ML SOL IH SCH ×2 (19:53→23:20)
[2022-10-17 20:00] VITALS: BP 95/99
[2022-10-18] VITALS: BP 135/67
[2022-10-18] MEDS: methylPREDNISolone SS 40 MG/ML VIAL IVP SCH ×5 (00:34→23:21)
--- NOTE | 2022-10-18 00:45 | NUR ---
PATIENT'S IV BECAME INFILTRATED. IV WAS STOPPED AND PATIENT'S ARM WAS ELEVATED. NEW IV WAS PLACED BY EMMANUEL MUNROE AT 0030. 0000 SOLU-MEDROL IVP MEDICATION WAS ADMINISTERED. NEW IV IS PATENT. WILL CONTINUE TO OBSERVE PATIENT.
[2022-10-18] MEDS: ALBUTEROL SULFATE/IPRATROPIU 3 ML SOL IH SCH ×5 (03:00→20:42)
[2022-10-18 04:00] VITALS: BP 119/76
--- NOTE | 2022-10-18 06:00 | NUR ---
PATIENT HAS SLEPT OFF AND ON THROUGHOUT THE NIGHT. PATIENT AMBULATED TO THE BATHROOM THREE TIME LAST NIGHT; VOIDING THREE TIMES WITH NO BM. PATIENT'S BREATHING IS NORMAL WITH SYMMETRICAL RISE AND FALL OF CHEST. WILL CONTINUE TO OBSERVE PATIENT.
[2022-10-18 06:24] LABS: BASOPHILS % (AUTO) 0.1 % (0.0-2.0); HEMOGLOBIN 14.2 g/dL (12.0-18.0); LYMPHOCYTES # (AUTO) 0.5 K/uL (2.0-11.5); LYMPHOCYTES % (AUTO) 8.4 % (20.5-51.1); MEAN CORPUSCULAR HEMOGLOBIN 29 pg (27-31); MEAN CORPUSCULAR HGB CONC 33 g/dL (33-37); MEAN CORPUSCULAR VOLUME 87.1 fL (80-94); MONOCYTES # (AUTO) 0.2 K/uL (0.8-1.0); NEUTROPHILS # (AUTO) 5.2 K/uL (1.8-7.7); NEUTROPHILS % (AUTO) 88.5 % (42.2-75.2); PLATELET COUNT (AUTO) 222 K/uL (140-450); RED BLOOD CELL COUNT(AUTO) 4.93 MIL/uL (4.20-6.10); RED CELL DISTRIBUTION WIDTH 15.3 % (11.6-13.7); WHITE BLOOD COUNT (AUTO) 5.9 K/uL (4.8-10.8)
[2022-10-18 06:53] LABS: ANION GAP 10.5 (8-16); CARBON DIOXIDE 27.9 mmol/L (21-32); CREATININE 0.8 mg/dL (0.6-1.3); POTASSIUM 4.4 mmol/L (3.5-5.1)
--- NOTE | 2022-10-18 07:02 | NUR ---
PATIENT REQUESTED TO TAKE SHOWER TODAY. MESSAGED DR. DIAZ. EMILY AUTHORIZED SHOWER PRIVILEGES FOR PATIENT. WILL ENDORSE TO DAY SHIFT NURSE.
--- NOTE | 2022-10-18 07:31 | NUR ---
ENDORSED TO DAY SHIFT NURSE OLGA LIDIA FOR CONTINUITY OF CARE. PATIENT IS STABLE.
[2022-10-18 08:00] VITALS: BP 133/87
--- NOTE | 2022-10-18 08:00 | NUR ---
NURSE REPORT REPORT OBTAINED FROM NIGHT NURSE GONZALEZ PEACE AND THIS NURSE ASSUMED CARE OF PATIENT. VS TAKEN. HR 146. AFEB. NO C/O PAIN OR DISCOMFORT. ON HIGH FELIZ O2- 70%.
[2022-10-18] MEDS: NICOTINE TRANSD SYS 14 MG/24 HR PATCH TD SCH (08:30)
[2022-10-18] MEDS: PANTOPRAZOLE 40 MG TABEC PO SCH (08:31)
--- NOTE | 2022-10-18 09:14 | NUR ---
PATIENT HAS BEEN SCREENED AND CATEGORIZED MODERATE NUTRITION RISK. PATIENT WILL BE SEEN WITHIN 3-5 DAYS OF ADMISSION. 10/16/22-10/21/[address]
[2022-10-18] MEDS: HYDROcodone/APAP 7.5/325 MG 1 TAB PO PRN ×2 (09:23→18:20)
[2022-10-18 12:00] VITALS: BP 129/56
--- NOTE | 2022-10-18 12:00 | NUR ---
NURSE NOTES VSS. AFEB. HR 92. TELE WITH AFIB WITH HR 119. ON HI FELIZ O2, BUT PATIENT KEEP GETTING OOB AND TAKE O2 OFF.
--- NOTE | 2022-10-18 13:37 | NUR ---
NURSE NOTES HR 165. DR DIAZ NOTIFIED AND ORDERED METOPROLOL 5 MG IVP AND GIVEN AT THIS TIME.
[2022-10-18] MEDS ORDERED: METOPROLOL 5 MG/5 ML VIAL IV SCH (13:45)
--- NOTE | 2022-10-18 14:10 | NUR ---
NURSE NOTES HR 90'S. RESTING IN BED AND NO SXS OF PAIN OR DISCOMFORT.
[2022-10-18 16:00] VITALS: BP 94/54
--- NOTE | 2022-10-18 16:00 | NUR ---
NURSE NOTES VS TAKEN. BP 94/54. HR 57. HAD METOPROLOL 5 MG AT 1337. PATIENT WOULD TAKE OFF HIS HIGH FELIZ O2 AND DESAT TO 75-80'S AND WHEN BACK ON INCREASED TO HIGH 80 AND 90'S. NO C/O PAIN OR SOB.
[2022-10-18] MEDS: DIGOXIN 0.25 MG TAB PO SCH (18:11)
--- NOTE | 2022-10-18 19:15 | NUR ---
NURSE REPORT REPORT GIVEN TO NIGHT NURSE GONZALEZ PEACE TO ASSUME CARE OF PATIENT. ALL QUESTIONS ANSWERED. OLGA LIDIA SCHMIDT RN
--- NOTE | 2022-10-18 19:24 | NUR ---
RECEIVED REPORT FROM DAY SHIFT NURSE OLGA LIDIA FOR CONTINUITY OF CARE. PATIENT IS A&O X2-3. PATIENT IS ON HIGH FLOW O2 AT 70%; BREATHING NORMAL WITH SYMMETRICAL RISE AND FALL OF CHEST. IV IS A 22G LFA, NO FLUIDS RUNNING AT THIS TIME (SALINE LOCKED). PATIENT IS LYING IN BED IN SEMI-FOWLERS POSITION; SLEEPING ON HIS SIDE. BED IS IN LOWEST POSITION, WHEELS LOCKED, CALL LIGHT IN PLACE. WILL CONTINUE TO OBSERVE PATIENT.
[2022-10-18 20:00] VITALS: BP 121/61
[2022-10-18] MEDS: METOPROLOL 25 MG TAB PO SCH (21:14)
[2022-10-19] VITALS: BP 127/89
--- NOTE | 2022-10-19 01:09 | NUR ---
PATIENT WOKE UP AROUND 2100 AND HAS STAYED AWAKE. PATIENT REQUESTED READING MATERIAL AND WAS GIVEN SOME MAGAZINES TO READ. PATIENT ALSO ASKED FOR A SANDWICH AND WAS GIVEN ONE. PATIENT CAME OFF TELE AT 0030 WAS FOUND STANDING BY THE SINK IN HIS UNDERWEAR HAVING REMOVED HIS GOWN AND TELE BOX (BOTH OF WHICH WERE LAID OUT ON HIS BED). PATIENT STATED HE WAS GOING TO BATH HIMSELF IN THE SINK SINCE HE DIDN'T GET A SHOWER DURING THE DAY. I TOLD THE PATIENT TO WAIT A MOMENT AND I WOULD GIVE HIM SUPPLIES. GAVE PATIENT A BUCKET AND FILLED IT WITH WARM WATER AND HOSPITAL SHAMPOO/BODY WASH. I ASKED PATIENT IF HE WANTED ASSISTANCE; THE PATIENT CHUCKLED AND SAID, "NO, I CAN HANDLE IT.". I SAID OKAY AND THEN SHOWED THE PATIENT THAT HE COULD USE THE WASH CLOTHES THAT I HAD BROUGHT TO SOAK IN THE SOAPY WATER AND THEN BATHE HIMSELF WITH THEM. I ALSO SHOWED HIM THE TOWELS I BROUGHT TO DRY HIMSELF OFF, AND TOLD HIM TO CALL ME WHEN HE WAS DONE. PATIENT THANKED ME. PATIENT'S DOOR OPENED AT 0100. WENT INTO ROOM AND PATIENT HAD CLEANED UP HIS TOWELS AND THE SINK AND PUT THE WET TOWELS IN THE SOILED LINENS HAMPER. I GOT PATIENT A NEW GOWN AND HELPED HIM PUT IT ON AND REATTACHED HIS TELE. PATIENT THANKED ME FOR THE HELP AND SAID HE FELT MUCH BETTER AFTER THE BATH. I REATTACHED PATIENT ON TO HIS O2; AND GOT HIM A PUDDING CUP AND A PENCIL TO WRITE WITH (PER PATIENT'S REQUEST). PATIENT IS SITTING ON BED. WILL CONTINUE TO OBSERVE PATIENT.
--- NOTE | 2022-10-19 01:33 | NUR ---
PATIENT REQUESTED MEDICATION TO HELP WITH SLEEP. CHECKED PATIENT'S VITALS AND CHART, ANTON WAS APPROPRIATE TO ADMINISTER. ADMINISTERED MEDICATION TO PATIENT. PATIENT TOLERATED WELL WITH NO ISSUES IN SWALLOWING. PATIENT STATED HE WAS GOING TO BED. PATIENT'S NC WAS ON AND PATIENT'S BREATHING WAS NORMAL WITH SYMMETRICAL RISE AND FALL OF CHEST. WILL CONTINUE TO OBSERVE PATIENT.
[2022-10-19] MEDS: ALBUTEROL SULFATE/IPRATROPIU 3 ML SOL IH SCH ×5 (02:00→14:52)
[2022-10-19 04:00] VITALS: BP 122/83
--- NOTE | 2022-10-19 06:00 | NUR ---
DESPITE PATIENT RECEIVING AMBIEN; PATIENT WAS UP THROUGHOUT THE ENTIRE NIGHT. PATIENT WALKED AROUND ROOM AND WATCHED TV. PATIENT TOOK OFF [employer] CANULA FREQUENTLY, BUT SEEMED TO TOLERATE WALKING AROUND THE ROOM WITHOUT ANY DIFFICULTIES. WILL CONTINUE TO OBSERVE PATIENT.
[2022-10-19] MEDS: methylPREDNISolone SS 40 MG/ML VIAL IVP SCH ×3 (06:32→18:42)
[2022-10-19 06:59] LABS: BASOPHILS % (AUTO) 0.1 % (0.0-2.0); HEMATOCRIT 42.3 % (36-52); HEMOGLOBIN 13.4 g/dL (12.0-18.0); LYMPHOCYTES # (AUTO) 0.7 K/uL (2.0-11.5); LYMPHOCYTES % (AUTO) 3.4 % (20.5-51.1); MEAN CORPUSCULAR HEMOGLOBIN 28 pg (27-31); MEAN CORPUSCULAR HGB CONC 32 g/dL (33-37); MEAN CORPUSCULAR VOLUME 87.6 fL (80-94); MONOCYTES # (AUTO) 0.6 K/uL (0.8-1.0); MONOCYTES % (AUTO) 3.1 % (1.7-9.3); NEUTROPHILS # (AUTO) 17.9 K/uL (1.8-7.7); NEUTROPHILS % (AUTO) 93.4 % (42.2-75.2); PLATELET COUNT (AUTO) 257 K/uL (140-450); RED BLOOD CELL COUNT(AUTO) 4.83 MIL/uL (4.20-6.10); RED CELL DISTRIBUTION WIDTH 15.4 % (11.6-13.7); WHITE BLOOD COUNT (AUTO) 19.2 K/uL (4.8-10.8)
[2022-10-19 07:12] LABS: ANION GAP 11.6 (8-16); CARBON DIOXIDE 29.9 mmol/L (21-32); CREATININE 0.9 mg/dL (0.6-1.3); POTASSIUM 4.5 mmol/L (3.5-5.1)
--- NOTE | 2022-10-19 07:30 | NUR ---
ENDORSED TO DAY SHIFT NURSE CLOVIS FOR CONTINUITY OF CARE. PATIENT IS STABLE.
--- NOTE | 2022-10-19 07:31 | NUR ---
Patient's Plan of Care was discussed and reviewed with RIVER DRIVER: CONTINUE WITH CURRENT POC
--- NOTE | 2022-10-19 07:31 | NUR ---
RECEIVED PT FROM ANESTHESIOLOGY FELLOW NURSE FOR CONTINUITY OF CARE. PT IS AWAKE, AOX4. PT IS AMBULATING IN HALLWAY, COMES TALK TO NIGHT NURSE AT NURSES STATION DURING REPORT. RESPIRATIONS EVEN AND UNLABORED ON RA. SKIN WARM AND DRY. IV ON L F/A 22G, SL. NO DISTRESS NOTED. INFORMED PT IS ON HI FLOW O2 BUT KEEPS REMOVING IT TO WALK ABOUT. PT REDIRECTED TO ROOM. PATIENT STATES HE CANT EAT WITH IT ON AND WILL PUT BACK ON ONCE FINISHED DRINKING COFFEE. CALL LIGHT WITHIN REACH. ALL SAFETY PRECAUTIONS IN PLACE.
--- NOTE | 2022-10-19 07:31 | NUR ---
Patient's Plan of Care was discussed and reviewed with LICENSED ESTHETICIAN: CONTINUE WITH CURRENT POC
[2022-10-19 08:00] VITALS: BP 126/92
[2022-10-19] MEDS: METOPROLOL 25 MG TAB PO SCH (08:58)
[2022-10-19] MEDS: NICOTINE TRANSD SYS 14 MG/24 HR PATCH TD SCH (08:58)
[2022-10-19] MEDS: HYDROcodone/APAP 7.5/325 MG 1 TAB PO PRN ×2 (08:59→17:01)
[2022-10-19] MEDS: PANTOPRAZOLE 40 MG TABEC PO SCH (08:59)
[2022-10-19] MEDS: DIGOXIN 0.25 MG TAB PO SCH (09:00)
--- NOTE | 2022-10-19 10:02 | NUR ---
RECEIVED CALL FROM LAB, INFORMING PATIENT IS MRSA POSITIVE. DR CARBALLO MADE AWARE. PROTOCOL INITIATED.
[2022-10-19] MEDS ORDERED: CHLORHEXADINE GLUC 2% CLOTH TP SCH (10:30)
[2022-10-19] MEDS ORDERED: MUPIROCIN CA NASAL 2% 1GM TUBE NS SCH (10:30)
[2022-10-19 12:00] VITALS: BP 122/67
--- NOTE | 2022-10-19 13:00 | NUR ---
PT IV CAME OUT. NEW IV ON L F/A 22G. IV INTACT AND PATENT.
[2022-10-19] MEDS ORDERED: DIGOXIN 0.25 MG TAB PO SCH ×2 (15:00→21:00)
[2022-10-19 16:00] VITALS: BP 108/89
--- NOTE | 2022-10-19 19:25 | NUR ---
ENDORSED PT TO WAREHOUSE REPRESENTATIVE NURSE FOR CONTINUITY OF CARE. PT IS STABLE.
--- NOTE | 2022-10-19 19:30 | NUR ---
RECEIVED PT ENDORSEMENT FROM DAY SHIFT NURSE. PT AMBULATES IN THE ROOM AND AT TIMES STANDING BY THE DOOR WHILE WATCHING NURSE ON EXCHANGE REPORTING. NO SOB OR DISTRESS, NO COMPLAINTS OF PAIN OR DISCOMFORT.
--- NOTE | 2022-10-19 19:55 | NUR ---
PT NOTED WALKING TOWARD EXIT DOOR WITH JACKET ON AND WE WERE (ONE OTHER RN AND MYSELF) ABLE TO PROMPT HIM TO COME BACK TO HIS ROOM. IN THE ROOM, PT GATHERED HIS BELONGINGS WHILE STATED " THIS IS JUST LIKE IN SNF". PT WAS EDUCATED ABOUT HIS IV ANTIBIOTIC AND TREATMENTS AND ENCOURAGE TO RELAX, SIT OR LAY DOWN FOR COMFORT. PT REFUSED TO STAY, HE STATED HE WANTS TO LEAVE. PT REFUSED TO SIGN AMA PAPER, HE ALSO REFUSED NURSE TO REMOVE IV SITE. HE DID PULL OUT HIS IV WHEN OUTSIDE THE DOOR, PULLED ID BAND OUT AND RETURNED TELE BOX TO NURSE, WITNESS ALSO BY SECURITY. PULLED IV SITE WAS BLEEDING AND HE REFUSED TO PUT DRESSING ON. HE LEFT WITH [facility] GOWN ON COVERED BY HIS JACKET.
[2022-10-20] MEDS ORDERED: ACET-8905 PO (03:14)
[2022-10-20] MEDS ORDERED: LID5T TP (03:14)
== END 2022-10-19 10:55 | disposition left against medical advice (07) | DRG 143 ==
LOC: MED 06:59 → MTU 12:47
PROVIDERS: ADMIT Family Medicine; ATTEND Family Medicine
DX: J93.83 Other pneumothorax (principal); J96.01 Acute respiratory failure with hypoxia; S22.078A Other fracture of T9-T10 vertebra, initial encounter for closed fracture; E44.1 Mild protein-calorie malnutrition; S22.42XA Multiple fractures of ribs, left side, initial encounter for closed fracture; I42.9 Cardiomyopathy, unspecified; J44.1 Chronic obstructive pulmonary disease with (acute) exacerbation; S09.90XA Unspecified injury of head, initial encounter; S13.4XXA Sprain of ligaments of cervical spine, initial encounter; I48.91 Unspecified atrial fibrillation; J45.909 Unspecified asthma, uncomplicated; F15.90 Other stimulant use, unspecified, uncomplicated; W01.0XXA Fall on same level from slipping, tripping and stumbling without subsequent striking against object, initial encounter; I11.0 Hypertensive heart disease with heart failure; I50.22 Chronic systolic (congestive) heart failure; Z20.822 Contact with and (suspected) exposure to COVID-19; Z91.81 History of falling; Y93.89 Activity, other specified; Y92.89 Other specified places as the place of occurrence of the external cause; Y99.8 Other external cause status; Z86.711 Personal history of pulmonary embolism; Z79.01 Long term (current) use of anticoagulants; Z68.26 Body mass index [BMI] 26.0-26.9, adult
CPT/HCPCS: 36415; 70450; 71045; 71250; 72125; 72128; 80048; 80053; 80162; 82150; 82948; 83036; 83690; 83735; 83880; 84100; 84436; 84439; 84443; 84479; 84484; 85025; 85610; 85730; 87081; 93005; 94640; 96374; 96375; 96376; 97116; 97163-GP; 99285; J0696; J1630; J2270; J2405; J2920; J3490; J7060; Q0092

== ENCOUNTER 2022-10-20 01:55 | Emergency (ER) | payer MEDICAID ==
[~2022-10-20] VITALS: Ht 185.4 cm; Wt 84.4 kg
[~2022-10-20 01:55] MED LIST changes: -LISI10TA30 PO; -METO50TE2 PO; -XAR10 PO
[2022-10-20 02:22] VITALS: BP 131/78
[2022-10-20] MEDS ORDERED: diazePAM 5 MG TAB PO ONE (02:35)
[2022-10-20] MEDS ORDERED: KETOROLAC 30 MG/ML VIAL IM ONE (02:35)
[2022-10-20] MEDS ORDERED: HYDROcodone/APAP 5/325 MG 1 TAB TAB PO ONE (02:35)
--- NOTE | 2022-10-20 02:38 | NUR ---
MD Mendez examining pt in triage rm.
--- NOTE | 2022-10-20 03:10 | NUR ---
PT TO BED #6
[2022-10-20] MEDS ORDERED: LID5T TP (03:14)
[2022-10-20] MEDS ORDERED: ACET-8905 PO (03:14)
--- NOTE | 2022-10-20 03:56 | NUR ---
Patient discharged with v/s stable. Written and verbal after care instructions given and explained. Patient alert, oriented and verbalized understanding of instructions. Wheel Chair Assisted with steady gait. All questions addressed prior to discharge. ID band removed. Patient advised to follow up with PMD. Rx of Hydrocodone and lidocaine given. Opportunity to ask questions provided and answered.
== END 2022-10-20 03:56 | disposition home or self-care (01) ==
LOC: MED 01:55
DX: R07.89 Other chest pain (principal); I50.9 Heart failure, unspecified; I10 Essential (primary) hypertension; Z79.899 Other long term (current) drug therapy
CPT/HCPCS: 96372; 99283; J1885